=== PATIENT | female | born 1940 | race Caucasian/White ===

== ENCOUNTER 2019-09-28 09:32 | Emergency (ER) | payer MEDICARE, OTHER ==
[~2019-09-28] VITALS: Ht 162.6 cm; Wt 84.8 kg
[2019-09-28] MEDS ORDERED: LOSA100T50 (09:51)
[2019-09-28] MEDS ORDERED: ACET1TAB55 (09:51)
[2019-09-28] MEDS ORDERED: ASPI1CHW2 (09:51)
[2019-09-28] MEDS ORDERED: VITA-122 (09:51)
[2019-09-28] MEDS ORDERED: GLIP10TA18 (09:51)
[2019-09-28] MEDS ORDERED: FURO20TA2 (09:51)
[2019-09-28] MEDS ORDERED: BIMA01SOL (09:51)
[2019-09-28] MEDS ORDERED: COMB0.2S (09:51)
[2019-09-28] MEDS ORDERED: METF10004 (09:51)
[2019-09-28] MEDS ORDERED: ZOLP5TAB (09:51)
[2019-09-28] MEDS ORDERED: ATEN25TA (09:51)
[2019-09-28] MEDS ORDERED: BENA40TA5 (09:51)
[2019-09-28] MEDS ORDERED: AMLO10TA5 (09:51)
[2019-09-28 11:22] VITALS: BP 142/68
== END 2019-09-28 11:41 | disposition home or self-care (01) ==
LOC: M ED 09:32
DX: T58.11XA Toxic effect of carbon monoxide from utility gas, accidental (unintentional), initial encounter (principal); I10 Essential (primary) hypertension; E78.5 Hyperlipidemia, unspecified; E11.9 Type 2 diabetes mellitus without complications; H40.9 Unspecified glaucoma; Z79.82 Long term (current) use of aspirin; Z79.84 Long term (current) use of oral hypoglycemic drugs; Z79.899 Other long term (current) drug therapy; Z88.0 Allergy status to penicillin; Z88.2 Allergy status to sulfonamides; Z88.5 Allergy status to narcotic agent

== ENCOUNTER → 2022-08-31 | Outpatient (REF) | payer MEDICARE, OTHER ==
[~2022-08-31] MED LIST: ACET1TAB55; AMLO1TAB25; ASPI1CHW2; ATEN25TA; BENA40TA84; BIMA01SOL; COMB0.2S; FURO20TA2; GLIP10TA18; LOSA100T45; METF10004; VITA-168; ZOLP5TAB
[2022-08-31 20:11] LABS: TOTAL PROTEIN,RANDOM URINE 61.2 MG/DL (0.0-14.0)
[2022-09-01 09:53] LABS: CREATININE,RANDOM URINE 24.7 MG/DL
== END ==
LOC: M LAB REF 17:10
PROVIDERS: ATTEND Nurse Practitioner Family
DX: R80.0 Isolated proteinuria (principal)

== ENCOUNTER → 2022-09-30 | Outpatient (CLI) | payer MEDICARE, OTHER ==
[2022-09-30 10:01] LABS: HEMATOCRIT 41.3 % (36.0-47.0); HEMOGLOBIN 13.8 g/dl (12.0-15.5); MEAN CORPUSCULAR HEMOGLOBIN 29.9 pg (27.0-33.0); MEAN CORPUSCULAR HGB CONC 33.4 g/dl (32.0-36.5); MEAN CORPUSCULAR VOLUME 89.6 fl (80.0-96.0); PLATELET COUNT, AUTOMATED 266 10^3/uL (150-450); RED BLOOD COUNT 4.61 10^6/uL (4.00-5.40); WHITE BLOOD COUNT 8.2 10^3/uL (4.0-10.0)
[2022-09-30 10:13] LABS: INR 0.85; PROTHROMBIN TIME 11.8 SECONDS (12.5-14.5)
[2022-09-30 10:14] LABS: HEMOGLOBIN A1c 6.7 % (4.0-6.0)
[2022-09-30 10:36] LABS: ALBUMIN 3.8 G/DL (3.2-5.2); ALKALINE PHOSPHATASE 53 U/L (46-116); ALT/SGPT 15 U/L (7.0-40); AST/SGOT 18 U/L (<34); BILIRUBIN,TOTAL 0.6 MG/DL (0.3-1.2); BLOOD UREA NITROGEN 16 MG/DL (9-23); CALCIUM LEVEL 9.7 MG/DL (8.3-10.6); CARBON DIOXIDE LEVEL 30 MMOL/L (20-31); CHLORIDE LEVEL 94 MMOL/L (98-107); CHOLESTEROL LEVEL 260 MG/DL (<200); CHOLESTEROL RISK RATIO 5.73 (<5); CREATININE FOR GFR 0.54 MG/DL (0.55-1.30); GLOMERULAR FILTRATION RATE > 60.0 (>32); GLUCOSE, FASTING 181 MG/DL (74-106); HDL CHOLESTEROL 45.3 MG/DL (>40); NON-HDL-C 215 MG/DL; POTASSIUM SERUM 4.3 MMOL/L (3.5-5.1); SODIUM LEVEL 132 MMOL/L (136-145); THYROID STIMULATING HORMONE 3.107 uIU/ML (0.55-4.78); TOTAL 25(OH) VITAMIN D 44.9 NG/ML (20.0-100.0); TOTAL PROTEIN 7.1 G/DL (5.7-8.2); TRIGLYCERIDES LEVEL 464 MG/DL (<150)
== END ==
LOC: M RAD 07:50
PROVIDERS: ATTEND Family Medicine
DX: Z01.818 Encounter for other preprocedural examination (principal); I10 Essential (primary) hypertension; E11.9 Type 2 diabetes mellitus without complications; R53.83 Other fatigue; R91.8 Other nonspecific abnormal finding of lung field; R94.31 Abnormal electrocardiogram [ECG] [EKG]

== ENCOUNTER → 2023-02-17 | Outpatient (REF) | payer MEDICARE, OTHER ==
[~2023-02-17] MED LIST changes: -LOSA100T45; +LOSA100T46
[2023-02-18 10:16] LABS: TOTAL PROTEIN,RANDOM URINE 62.8 MG/DL (0.0-14.0)
[2023-02-18 10:21] LABS: CREATININE,RANDOM URINE 39.6 MG/DL
== END ==
LOC: M LAB REF 09:55
PROVIDERS: ATTEND Nurse Practitioner Family
DX: R80.0 Isolated proteinuria (principal)

== ENCOUNTER 2023-03-26 11:47 | Emergency (ER) | payer MEDICARE, OTHER ==
[~2023-03-26] VITALS: Ht 160 cm; Wt 83.2 kg
[~2023-03-26 11:47] MED LIST changes: -AMLO1TAB25; +AMLO1TAB25 PO; -ASPI1CHW2; +ASPI1CHW2 PO; -ATEN25TA; +ATEN25TA PO; -FURO20TA2; +FURO20TA2 PO; -LOSA100T46; +LOSA100T46 PO; -METF10004; +METF10004 PO
[2023-03-26 14:10] LABS: BASO # 0.2 10^3/uL (0.0-0.2); BASO % 1.5 % (0.0-1.0); EOS # 0.6 10^3/uL (0.0-0.5); EOS % 5.3 % (0.0-3.0); HEMOGLOBIN 12.6 g/dl (12.0-15.5); LYMPH # 1.9 10^3/uL (1.5-5.0); LYMPH % 17.3 % (24.0-44.0); MEAN CORPUSCULAR HEMOGLOBIN 29.9 pg (27.0-33.0); MEAN CORPUSCULAR HGB CONC 33.2 g/dl (32.0-36.5); MONO # 1.1 10^3/uL (0.0-0.8); MONO % 10.2 % (2.0-8.0); NEUTROPHILS # 7.2 10^3/uL (1.5-8.5); PLATELET COUNT, AUTOMATED 355 10^3/uL (150-450); RED BLOOD COUNT 4.22 10^6/uL (4.00-5.40); WHITE BLOOD COUNT 11.2 10^3/uL (4.0-10.0)
[2023-03-26] MEDS ORDERED: glipiZIDE XL 5 MG TABCR PO ONE (14:15)
[2023-03-26 14:24] LABS: HEMOGLOBIN A1c 7.3 % (4.0-6.0)
[2023-03-26 14:33] LABS: CK-MB VALUE MASS < 1.0 NG/ML (<3.6)
[2023-03-26 14:36] LABS: ALBUMIN 3.4 G/DL (3.2-5.2); ALKALINE PHOSPHATASE 180 U/L (46-116); ALT/SGPT 60 U/L (7.0-40); AST/SGOT 35 U/L (<34); BILIRUBIN,DIRECT 0.2 MG/DL (<0.4); BILIRUBIN,TOTAL 0.4 MG/DL (0.3-1.2); BLOOD UREA NITROGEN 13 MG/DL (9-23); CALCIUM LEVEL 9.2 MG/DL (8.3-10.6); CARBON DIOXIDE LEVEL 26 MMOL/L (20-31); CHLORIDE LEVEL 96 MMOL/L (98-107); CREATININE FOR GFR 0.49 MG/DL (0.55-1.30); GLOMERULAR FILTRATION RATE > 60.0 (>32); GLUCOSE, FASTING 180 MG/DL (74-106); POTASSIUM SERUM 4.7 MMOL/L (3.5-5.1); SODIUM LEVEL 133 MMOL/L (136-145); TOTAL PROTEIN 7.3 G/DL (5.7-8.2)
[2023-03-26 14:38] LABS: FREE T4 1.52 NG/DL (0.89-1.76); THYROID STIMULATING HORMONE 2.519 uIU/ML (0.55-4.78)
[2023-03-26 14:41] LABS: CPK CREATINE PHOSPHOKINASE 36 U/L (34-145); MB/CK RELATIVE INDEX 2.77 (< OR =4)
[2023-03-26 15:58] LABS: CK-MB VALUE MASS < 1.0 NG/ML (<3.6)
[2023-03-26 16:01] LABS: CPK CREATINE PHOSPHOKINASE 29 U/L (34-145); MB/CK RELATIVE INDEX 3.44 (< OR =4)
[2023-03-26] MEDS ORDERED: AMBI5TAB PO (16:14)
[2023-03-26] MEDS ORDERED: LOSARTAN 50MG TABLET PO ONE (16:20)
[2023-03-26 16:30] VITALS: BP 148/69; TEMP 97.7; O2SAT 91
[2023-03-26 16:40] VITALS: BP 148/69
== END 2023-03-26 16:45 | disposition home or self-care (01) ==
LOC: M ED 11:47
DX: E11.65 Type 2 diabetes mellitus with hyperglycemia (principal); I12.9 Hypertensive chronic kidney disease with stage 1 through stage 4 chronic kidney disease, or unspecified chronic kidney disease; N18.9 Chronic kidney disease, unspecified; E78.5 Hyperlipidemia, unspecified; Z88.0 Allergy status to penicillin; Z88.2 Allergy status to sulfonamides; Z88.5 Allergy status to narcotic agent; Z79.899 Other long term (current) drug therapy; Z79.82 Long term (current) use of aspirin; Z79.84 Long term (current) use of oral hypoglycemic drugs

== ENCOUNTER → 2024-01-18 | Outpatient (CLI) | payer MEDICARE, OTHER ==
[~2024-01-18] MED LIST changes: +AMBI5TAB PO
[2024-01-18 11:14] LABS: HEMATOCRIT 38.6 % (36.0-47.0); HEMOGLOBIN 12.8 g/dl (12.0-15.5); MEAN CORPUSCULAR HEMOGLOBIN 29.3 pg (27.0-33.0); MEAN CORPUSCULAR HGB CONC 33.2 g/dl (32.0-36.5); MEAN CORPUSCULAR VOLUME 88.3 fl (80.0-96.0); PLATELET COUNT, AUTOMATED 267 10^3/uL (150-450); RED BLOOD COUNT 4.37 10^6/uL (4.00-5.40); WHITE BLOOD COUNT 7.5 10^3/uL (4.0-10.0)
[2024-01-18 11:28] LABS: HEMOGLOBIN A1c 6.8 % (4.0-6.0)
[2024-01-18 11:41] LABS: ALBUMIN 3.3 G/DL (3.2-5.2); ALKALINE PHOSPHATASE 54 U/L (46-116); ALT/SGPT 13 U/L (7.0-40); AST/SGOT 12 U/L (<34); BILIRUBIN,TOTAL 0.5 MG/DL (0.3-1.2); BLOOD UREA NITROGEN 16 MG/DL (9-23); CARBON DIOXIDE LEVEL 28 MMOL/L (20-31); CHLORIDE LEVEL 100 MMOL/L (98-107); CHOLESTEROL LEVEL 217 MG/DL (<200); CHOLESTEROL RISK RATIO 5.56 (<5); CREATININE FOR GFR 0.61 MG/DL (0.55-1.30); GLOMERULAR FILTRATION RATE > 60.0 (>32); GLUCOSE, FASTING 157 MG/DL (74-106); POTASSIUM SERUM 4.5 MMOL/L (3.5-5.1); SODIUM LEVEL 136 MMOL/L (136-145); THYROID STIMULATING HORMONE 4.046 uIU/ML (0.55-4.78); TOTAL 25(OH) VITAMIN D 21.5 NG/ML (20.0-100.0); TOTAL PROTEIN 6.7 G/DL (5.7-8.2); TRIGLYCERIDES LEVEL 432 MG/DL (<150)
== END ==
LOC: M LAB 09:21
PROVIDERS: ATTEND Family Medicine
DX: I10 Essential (primary) hypertension (principal); R53.83 Other fatigue; E03.9 Hypothyroidism, unspecified; Z79.899 Other long term (current) drug therapy

== ENCOUNTER → 2024-05-03 | Outpatient (CLI) | payer MEDICARE, OTHER ==
[2024-05-03 12:03] LABS: HEMATOCRIT 40.4 % (36.0-47.0); HEMOGLOBIN 13.5 g/dl (12.0-15.5); MEAN CORPUSCULAR HEMOGLOBIN 29.2 pg (27.0-33.0); MEAN CORPUSCULAR HGB CONC 33.4 g/dl (32.0-36.5); MEAN CORPUSCULAR VOLUME 87.4 fl (80.0-96.0); PLATELET COUNT, AUTOMATED 331 10^3/uL (150-450); RED BLOOD COUNT 4.62 10^6/uL (4.00-5.40); WHITE BLOOD COUNT 9.8 10^3/uL (4.0-10.0)
[2024-05-03 12:26] LABS: HEMOGLOBIN A1c 6.6 % (4.0-6.0)
[2024-05-03 12:30] LABS: THYROID STIMULATING HORMONE 3.707 uIU/ML (0.55-4.78); TOTAL 25(OH) VITAMIN D 28.5 NG/ML (20.0-100.0)
[2024-05-03 12:31] LABS: ALBUMIN 3.5 G/DL (3.2-5.2); ALKALINE PHOSPHATASE 68 U/L (46-116); ALT/SGPT 14 U/L (7.0-40); AST/SGOT 13 U/L (<34); BILIRUBIN,TOTAL 0.4 MG/DL (0.3-1.2); BLOOD UREA NITROGEN 15 MG/DL (9-23); CALCIUM LEVEL 10.4 MG/DL (8.3-10.6); CARBON DIOXIDE LEVEL 32 MMOL/L (20-31); CHLORIDE LEVEL 98 MMOL/L (98-107); CHOLESTEROL LEVEL 236 MG/DL (<200); CHOLESTEROL RISK RATIO 6.11 (<5); GLOMERULAR FILTRATION RATE > 60.0 (>32); GLUCOSE, FASTING 160 MG/DL (74-106); HDL CHOLESTEROL 38.6 MG/DL (>40); NON-HDL-C 197.4 MG/DL; POTASSIUM SERUM 4.7 MMOL/L (3.5-5.1); SODIUM LEVEL 134 MMOL/L (136-145); TOTAL PROTEIN 7.2 G/DL (5.7-8.2); TRIGLYCERIDES LEVEL 402 MG/DL (<150)
== END ==
LOC: M RAD 10:20
PROVIDERS: ATTEND Family Medicine
DX: I10 Essential (primary) hypertension (principal); E11.9 Type 2 diabetes mellitus without complications; M25.512 Pain in left shoulder; M25.532 Pain in left wrist; M19.042 Primary osteoarthritis, left hand; Z79.899 Other long term (current) drug therapy

== ENCOUNTER → 2024-08-13 | Outpatient (CLI) | payer MEDICARE, OTHER ==
[2024-08-13 12:08] LABS: HEMATOCRIT 41.7 % (36.0-47.0); HEMOGLOBIN 14.1 g/dl (12.0-15.5); MEAN CORPUSCULAR HEMOGLOBIN 29.8 pg (27.0-33.0); MEAN CORPUSCULAR HGB CONC 33.8 g/dl (32.0-36.5); MEAN CORPUSCULAR VOLUME 88.2 fl (80.0-96.0); PLATELET COUNT, AUTOMATED 303 10^3/uL (150-450); RED BLOOD COUNT 4.73 10^6/uL (4.00-5.40); WHITE BLOOD COUNT 9.6 10^3/uL (4.0-10.0)
[2024-08-13 12:14] LABS: HEMOGLOBIN A1c 6.7 % (4.0-6.0)
[2024-08-13 12:23] LABS: ALBUMIN 3.7 G/DL (3.2-5.2); ALKALINE PHOSPHATASE 60 U/L (35-104); ALT/SGPT 16 U/L (7.0-40); AST/SGOT 13 U/L (<34); BILIRUBIN,TOTAL 0.4 MG/DL (0.3-1.2); BLOOD UREA NITROGEN 15 MG/DL (9-23); CALCIUM LEVEL 10.1 MG/DL (8.3-10.6); CARBON DIOXIDE LEVEL 31 MMOL/L (20-31); CHLORIDE LEVEL 96 MMOL/L (98-107); CHOLESTEROL LEVEL 277 MG/DL (<200); CHOLESTEROL RISK RATIO 6.39 (<5); CREATININE FOR GFR 0.52 MG/DL (0.55-1.30); GLOMERULAR FILTRATION RATE > 60.0 (>32); GLUCOSE, FASTING 176 MG/DL (74-106); HDL CHOLESTEROL 43.3 MG/DL (>40); NON-HDL-C 233.7 MG/DL; POTASSIUM SERUM 4.4 MMOL/L (3.5-5.1); SODIUM LEVEL 133 MMOL/L (136-145); TOTAL PROTEIN 7.8 G/DL (5.7-8.2); TRIGLYCERIDES LEVEL 671 MG/DL (<150)
[2024-08-13 12:25] LABS: THYROID STIMULATING HORMONE 2.562 uIU/ML (0.55-4.78); TOTAL 25(OH) VITAMIN D 27.2 NG/ML (20.0-100.0)
== END ==
LOC: M RAD 10:38
PROVIDERS: ATTEND Family Medicine
DX: I10 Essential (primary) hypertension (principal); R53.83 Other fatigue

== ENCOUNTER 2024-09-27 07:28 | Inpatient (IN) | payer MEDICARE, OTHER ==
[~2024-09-27] VITALS: Ht 160 cm; Wt 84.4 kg
[~2024-09-27 07:28] MED LIST changes: -ACET1TAB55; +ACET1TAB55 PO; -BIMA01SOL; +BIMA01SOL OU; -COMB0.2S; +COMB0.2S OU; -GLIP10TA18; +GLIP10TA18 PO
[2024-09-27 08:09] LABS: BASO # 0.1 10^3/uL (0.0-0.2); EOS # 0.2 10^3/uL (0.0-0.5); EOS % 1.5 % (0.0-3.0); HEMOGLOBIN 12.9 g/dl (12.0-15.5); LYMPH # 1.3 10^3/uL (1.5-5.0); LYMPH % 12.5 % (24.0-44.0); MEAN CORPUSCULAR HEMOGLOBIN 29.9 pg (27.0-33.0); MEAN CORPUSCULAR HGB CONC 33.9 g/dl (32.0-36.5); MONO # 0.6 10^3/uL (0.0-0.8); MONO % 6.2 % (2.0-8.0); NEUTROPHILS # 7.5 10^3/uL (1.5-8.5); NEUTROPHILS % 73.8 % (36.0-66.0); PLATELET COUNT, AUTOMATED 358 10^3/uL (150-450); RED BLOOD COUNT 4.32 10^6/uL (4.00-5.40); WHITE BLOOD COUNT 10.2 10^3/uL (4.0-10.0)
[2024-09-27 08:52] LABS: ALBUMIN 3.1 G/DL (3.2-5.2); ALKALINE PHOSPHATASE 70 U/L (35-104); ALT/SGPT 21 U/L (7.0-40); AST/SGOT 22 U/L (<34); BILIRUBIN,DIRECT 0.2 MG/DL (<0.4); BILIRUBIN,TOTAL 0.5 MG/DL (0.3-1.2); BLOOD UREA NITROGEN 10 MG/DL (9-23); CALCIUM LEVEL 8.6 MG/DL (8.3-10.6); CARBON DIOXIDE LEVEL 32 MMOL/L (20-31); CHLORIDE LEVEL 81 MMOL/L (98-107); CREATININE FOR GFR 0.47 MG/DL (0.55-1.30); GLOMERULAR FILTRATION RATE > 60.0 (>32); GLUCOSE, FASTING 244 MG/DL (74-106); POTASSIUM SERUM 4.6 MMOL/L (3.5-5.1); SODIUM LEVEL 122 MMOL/L (136-145); TOTAL PROTEIN 6.7 G/DL (5.7-8.2)
[2024-09-27] MEDS: IPRATROPIUM 0.5MG/ALBUTEROL 2.5MG INH SOL UD 3ML (DUONEB) NEB SCH (08:52)
[2024-09-27] MEDS: CEFEPIME HCL 2 GM in DEXTROSE 5% (D5W) ADV/MINI-BAG 50 ML IV ONE (09:00)
[2024-09-27 09:01] LABS: ABG BASE EXCESS 4.9 (-2.0-2.0); ABG O2 SATURATION 90.5 % (95.0-99.0); ABG PARTIAL PRESSURE CO2 52.1 mmHg (35.0-45.0); ABG PARTIAL PRESSURE O2 60.9 mmHg (75.0-100.0); ABG STANDARD HCO3 28.7 MMOL/L. (22.0-26.0); ABG TOTAL CO2 32.6 MMOL/L (23.0-31.0); ABG pH (ARTERIAL) 7.393 UNITS (7.350-7.450)
[2024-09-27] MEDS: OSELTAMIVIR PHOSPHATE 75 MG CAP PO ONE (09:40)
[2024-09-27 11:12] LABS: FREE T4 1.63 NG/DL (0.89-1.76)
[2024-09-27 11:13] LABS: THYROID STIMULATING HORMONE 2.219 uIU/ML (0.55-4.78)
[2024-09-27 11:29] LABS: OSMOLALITY SERUM 267 MOSM/KG (280-301)
[2024-09-27] MEDS ORDERED: GLUCOSE 4 GM CHEW PO PRN (11:30)
[2024-09-27] MEDS ORDERED: DEXTROSE 50% 50ML SYRINGE IV PRN (11:30)
[2024-09-27] MEDS ORDERED: GLUCAGON INJ 1MG VIAL SC PRN (11:30)
[2024-09-27 11:44] LABS: CREATININE,RANDOM URINE 49.3 MG/DL
[2024-09-27] MEDS: DOXYCYCLINE HYCLATE 100 MG in DEXTROSE 5% (D5W) MINI-BAG PLU 100 ML IV SCH (12:57)
[2024-09-27] MEDS ORDERED: VITA1CAP25 PO (13:24)
[2024-09-27] MEDS ORDERED: CIPR250T3 PO (13:24)
[2024-09-27] MEDS ORDERED: ASPI325T47 PO (13:24)
[2024-09-27] MEDS ORDERED: HOME MED LIST COMPLETE! XX SCH (13:25)
[2024-09-27] MEDS: INSULIN LISPRO (NovoLOG) PER UNIT SC SCH ×2 (13:26→22:13)
[2024-09-27] MEDS: ALBUTEROL SULFATE 2.5MG/0.5ML INH NEB SOLN NEB SCH ×2 (13:40→16:00)
[2024-09-27] MEDS: FUROSEMIDE 20MG/2ML VIAL IV ONE (15:37)
[2024-09-27] MEDS: cefTRIAXone SOD 2 GM in DEXTROSE 5% (D5W) ADV/MINI-BAG 50 ML IV SCH (17:58)
[2024-09-27 18:55] LABS: BLOOD UREA NITROGEN 16 MG/DL (9-23); CALCIUM LEVEL 8.2 MG/DL (8.3-10.6); CARBON DIOXIDE LEVEL 30 MMOL/L (20-31); CHLORIDE LEVEL 83 MMOL/L (98-107); CREATININE FOR GFR 0.53 MG/DL (0.55-1.30); GLOMERULAR FILTRATION RATE > 60.0 (>32); GLUCOSE, FASTING 262 MG/DL (74-106); POTASSIUM SERUM 5.3 MMOL/L (3.5-5.1); SODIUM LEVEL 122 MMOL/L (136-145)
[2024-09-27] MEDS: SYMBICORT 160/4.5MCG INHALER 6GM INH SCH (19:11)
[2024-09-27] MEDS: DOCUSATE SODIUM 100MG CAPSULE PO SCH (21:00)
[2024-09-27 21:46] VITALS: BP 125/65; TEMP 98.2; O2SAT 94
[2024-09-27] MEDS: ENOXAPARIN 40MG/0.4ML SYRINGE (J1650 PER 10MG) SC SCH (22:11)
[2024-09-27] MEDS: LEVEMIR (INSULIN DETEMIR) 1 UNITS/0.01ML SC SCH (22:12)
[2024-09-27] MEDS: OSELTAMIVIR PHOSPHATE 75 MG CAP PO SCH (22:13)
[2024-09-28] VITALS (10 sets, daily range): BP systolic 110–140; BP diastolic 54–70; TEMP 97.1–98.6; O2SAT 90–95
[2024-09-28] MEDS: LATANOPROST 0.005% OPHTH SOLN 2.5 ML OU SCH (00:34)
[2024-09-28 05:44] LABS: BASO % 0.4 % (0.0-1.0); EOS % 0.1 % (0.0-3.0); HEMATOCRIT 35.8 % (36.0-47.0); HEMOGLOBIN 12.1 g/dl (12.0-15.5); LYMPH # 0.9 10^3/uL (1.5-5.0); LYMPH % 9.3 % (24.0-44.0); MEAN CORPUSCULAR HEMOGLOBIN 29.7 pg (27.0-33.0); MEAN CORPUSCULAR HGB CONC 33.8 g/dl (32.0-36.5); MONO # 0.4 10^3/uL (0.0-0.8); NEUTROPHILS # 8.2 10^3/uL (1.5-8.5); NEUTROPHILS % 83.2 % (36.0-66.0); PLATELET COUNT, AUTOMATED 344 10^3/uL (150-450); RED BLOOD COUNT 4.07 10^6/uL (4.00-5.40); WHITE BLOOD COUNT 9.9 10^3/uL (4.0-10.0)
[2024-09-28 06:01] LABS: BLOOD UREA NITROGEN 17 MG/DL (9-23); CALCIUM LEVEL 8.9 MG/DL (8.3-10.6); CARBON DIOXIDE LEVEL 34 MMOL/L (20-31); CHLORIDE LEVEL 86 MMOL/L (98-107); GLOMERULAR FILTRATION RATE > 60.0 (>32); GLUCOSE, FASTING 118 MG/DL (74-106); SODIUM LEVEL 128 MMOL/L (136-145)
[2024-09-28] MEDS: ASPIRIN ENTERIC 325MG TAB PO SCH (08:57)
[2024-09-28] MEDS: atenoloL 25 MG TAB PO SCH (08:58)
[2024-09-28] MEDS: glipiZIDE XL 5 MG TABCR PO SCH (08:58)
[2024-09-28] MEDS: FUROSEMIDE 20 MG TAB PO SCH (08:58)
[2024-09-28] MEDS ORDERED: PILL CUTTER 1 EACH XX ONE (09:03)
[2024-09-28] MEDS: DOXYCYCLINE HYCLATE 100MG TABLET PO SCH (20:36)
[2024-09-29 00:18] VITALS: O2SAT 91
[2024-09-29 04:57] VITALS: BP 138/69; TEMP 97.3; O2SAT 94
[2024-09-29 08:35] LABS: BASO % 0.3 % (0.0-1.0); EOS % 0.1 % (0.0-3.0); HEMOGLOBIN 12.6 g/dl (12.0-15.5); LYMPH # 0.8 10^3/uL (1.5-5.0); LYMPH % 7.1 % (24.0-44.0); MEAN CORPUSCULAR HEMOGLOBIN 29.5 pg (27.0-33.0); MEAN CORPUSCULAR HGB CONC 33.2 g/dl (32.0-36.5); MONO # 0.4 10^3/uL (0.0-0.8); MONO % 3.8 % (2.0-8.0); NEUTROPHILS # 10.1 10^3/uL (1.5-8.5); PLATELET COUNT, AUTOMATED 407 10^3/uL (150-450); RED BLOOD COUNT 4.27 10^6/uL (4.00-5.40); WHITE BLOOD COUNT 11.7 10^3/uL (4.0-10.0)
[2024-09-29 08:54] LABS: BLOOD UREA NITROGEN 21 MG/DL (9-23); CALCIUM LEVEL 9.2 MG/DL (8.3-10.6); CARBON DIOXIDE LEVEL 36 MMOL/L (20-31); CHLORIDE LEVEL 87 MMOL/L (98-107); CREATININE FOR GFR 0.57 MG/DL (0.55-1.30); GLOMERULAR FILTRATION RATE > 60.0 (>32); GLUCOSE, FASTING 176 MG/DL (74-106); POTASSIUM SERUM 5.2 MMOL/L (3.5-5.1); SODIUM LEVEL 130 MMOL/L (136-145)
[2024-09-29 12:00] VITALS: TEMP 97.7; O2SAT 94
[2024-09-29 18:50] VITALS: O2SAT 93
[2024-09-29 19:38] VITALS: BP 126/49; TEMP 97.5; O2SAT 94
[2024-09-29 20:34] VITALS: O2SAT 90
[2024-09-30 04:00] VITALS: BP 153/77; TEMP 97.3; O2SAT 97
[2024-09-30 06:11] LABS: BASO % 0.1 % (0.0-1.0); EOS % 0.4 % (0.0-3.0); HEMATOCRIT 36.7 % (36.0-47.0); HEMOGLOBIN 11.7 g/dl (12.0-15.5); LYMPH # 0.5 10^3/uL (1.5-5.0); LYMPH % 4.6 % (24.0-44.0); MEAN CORPUSCULAR HGB CONC 31.9 g/dl (32.0-36.5); MEAN CORPUSCULAR VOLUME 91.1 fl (80.0-96.0); MONO # 0.4 10^3/uL (0.0-0.8); MONO % 4.2 % (2.0-8.0); NEUTROPHILS # 8.7 10^3/uL (1.5-8.5); NEUTROPHILS % 89.8 % (36.0-66.0); PLATELET COUNT, AUTOMATED 346 10^3/uL (150-450); RED BLOOD COUNT 4.03 10^6/uL (4.00-5.40); WHITE BLOOD COUNT 9.7 10^3/uL (4.0-10.0)
[2024-09-30 06:35] LABS: BLOOD UREA NITROGEN 24 MG/DL (9-23); CALCIUM LEVEL 8.6 MG/DL (8.3-10.6); CARBON DIOXIDE LEVEL 34 MMOL/L (20-31); CHLORIDE LEVEL 92 MMOL/L (98-107); CREATININE FOR GFR 0.63 MG/DL (0.55-1.30); GLOMERULAR FILTRATION RATE > 60.0 (>32); GLUCOSE, FASTING 187 MG/DL (74-106); POTASSIUM SERUM 4.7 MMOL/L (3.5-5.1); SODIUM LEVEL 131 MMOL/L (136-145)
[2024-09-30 08:37] VITALS: BP 136/68
[2024-09-30] MEDS: CEFDINIR 300 MG CAP (OMNICEF) PO SCH (10:07)
[2024-09-30 12:00] VITALS: BP 145/67; TEMP 97.3; O2SAT 89; O2SAT 90
[2024-09-30 20:10] VITALS: BP 110/50; TEMP 97.3; O2SAT 93
[2024-09-30] MEDS: RAMELTEON 8 MG TAB (ROZEREM) PO SCH (20:29)
[2024-10-01] VITALS (11 sets, daily range): BP systolic 106–139; BP diastolic 55–62; TEMP 97.3–97.5; O2SAT 83–94
[2024-10-01 07:38] LABS: BASO % 0.1 % (0.0-1.0); EOS # 0.1 10^3/uL (0.0-0.5); EOS % 0.4 % (0.0-3.0); HEMATOCRIT 37.2 % (36.0-47.0); HEMOGLOBIN 12.2 g/dl (12.0-15.5); LYMPH # 2.9 10^3/uL (1.5-5.0); LYMPH % 21.4 % (24.0-44.0); MEAN CORPUSCULAR HEMOGLOBIN 29.8 pg (27.0-33.0); MEAN CORPUSCULAR HGB CONC 32.8 g/dl (32.0-36.5); MONO # 1.4 10^3/uL (0.0-0.8); MONO % 10.1 % (2.0-8.0); NEUTROPHILS # 9.2 10^3/uL (1.5-8.5); NEUTROPHILS % 67.3 % (36.0-66.0); PLATELET COUNT, AUTOMATED 421 10^3/uL (150-450); RED BLOOD COUNT 4.09 10^6/uL (4.00-5.40); WHITE BLOOD COUNT 13.6 10^3/uL (4.0-10.0)
[2024-10-01 08:05] LABS: BLOOD UREA NITROGEN 21 MG/DL (9-23); CALCIUM LEVEL 9.6 MG/DL (8.3-10.6); CARBON DIOXIDE LEVEL 34 MMOL/L (20-31); CHLORIDE LEVEL 95 MMOL/L (98-107); GLOMERULAR FILTRATION RATE > 60.0 (>32); GLUCOSE, FASTING 52 MG/DL (74-106); POTASSIUM SERUM 4.7 MMOL/L (3.5-5.1); SODIUM LEVEL 135 MMOL/L (136-145)
[2024-10-01] MEDS: predniSONE 20 MG TAB PO SCH (10:17)
[2024-10-01] MEDS ORDERED: traZODone 25MG PER 1/2 TABLET PO PRN (12:10)
[2024-10-01] MEDS ORDERED: OSEL75CA2 PO (14:52)
[2024-10-01] MEDS ORDERED: DOXY100T PO (14:52)
[2024-10-01] MEDS ORDERED: PRED10TA2 PO (14:52)
[2024-10-01] MEDS ORDERED: VENTAER INH (14:52)
[2024-10-01] MEDS ORDERED: CEFD300CAP PO (14:52)
[2024-10-01] MEDS ORDERED: PROBCAP14 PO (14:52)
[2024-10-01] MEDS ORDERED: SYMB16INH INH (14:52)
== END 2024-10-01 16:18 | disposition home or self-care (01) | DRG 871 ==
LOC: M ED 07:28 → M ED INP 11:20 → M PCU 21:44 → M MSPAV 09-28 16:31
PROVIDERS: ADMIT Internal Medicine Nephrology; ATTEND Internal Medicine Nephrology
DX: A41.9 Sepsis, unspecified organism (principal); J10.00 Influenza due to other identified influenza virus with unspecified type of pneumonia; J15.9 Unspecified bacterial pneumonia; J96.01 Acute respiratory failure with hypoxia; J90 Pleural effusion, not elsewhere classified; E22.2 Syndrome of inappropriate secretion of antidiuretic hormone; E11.22 Type 2 diabetes mellitus with diabetic chronic kidney disease; I12.9 Hypertensive chronic kidney disease with stage 1 through stage 4 chronic kidney disease, or unspecified chronic kidney disease; E78.5 Hyperlipidemia, unspecified; N18.9 Chronic kidney disease, unspecified; R91.1 Solitary pulmonary nodule; Z98.41 Cataract extraction status, right eye; Z98.42 Cataract extraction status, left eye; Z79.82 Long term (current) use of aspirin; Z79.84 Long term (current) use of oral hypoglycemic drugs; Z79.899 Other long term (current) drug therapy; Z88.0 Allergy status to penicillin; Z88.1 Allergy status to other antibiotic agents; Z88.2 Allergy status to sulfonamides; Z88.5 Allergy status to narcotic agent

== ENCOUNTER → 2024-10-23 | Outpatient (CLI) | payer MEDICARE, OTHER ==
[~2024-10-23] MED LIST changes: +ASPI325T47 PO; +ASPI81TA26 PO; +CEFD300CAP PO; +CIPR250T3 PO; +DOXY100T PO; +GLIP-320 PO; -GLIP10TA18 PO; +HYDR1CAP25 PO; +OSEL75CA2 PO; +PRED10TA2 PO; +PROBCAP14 PO; +SYMB16INH INH; +VENTAER INH; +VITA1CAP25 PO
== END ==
LOC: M RAD 09:47
PROVIDERS: ATTEND Family Medicine
DX: R07.9 Chest pain, unspecified (principal)

== ENCOUNTER 2024-10-26 11:23 | Inpatient (IN) | payer MEDICARE, OTHER ==
[~2024-10-26] VITALS: Ht 162.6 cm; Wt 82.3 kg
[~2024-10-26 11:23] MED LIST changes: -ASPI81TA26 PO; -HYDR1CAP25 PO
[2024-10-26] MEDS: IPRATROPIUM 0.5MG/ALBUTEROL 2.5MG INH SOL UD 3ML NEB PRN (11:57)
[2024-10-26 12:18] LABS: ABG BASE EXCESS -6.2 (-2.0-2.0); ABG HCO3 19.4 MMOL/L (22.0-26.0); ABG O2 SATURATION 93.7 % (95.0-99.0); ABG PARTIAL PRESSURE CO2 38.6 mmHg (35.0-45.0); ABG PARTIAL PRESSURE O2 70.9 mmHg (75.0-100.0); ABG STANDARD HCO3 19.4 MMOL/L. (22.0-26.0); ABG TOTAL CO2 20.6 MMOL/L (23.0-31.0); ABG pH (ARTERIAL) 7.319 UNITS (7.350-7.450)
[2024-10-26 12:38] LABS: BASO # 0.1 10^3/uL (0.0-0.2); BASO % 0.3 % (0.0-1.0); EOS # 0.1 10^3/uL (0.0-0.5); EOS % 0.9 % (0.0-3.0); HEMATOCRIT 37.7 % (36.0-47.0); HEMOGLOBIN 12.5 g/dl (12.0-15.5); LYMPH # 0.8 10^3/uL (1.5-5.0); LYMPH % 5.4 % (24.0-44.0); MEAN CORPUSCULAR HEMOGLOBIN 28.5 pg (27.0-33.0); MEAN CORPUSCULAR HGB CONC 33.2 g/dl (32.0-36.5); MEAN CORPUSCULAR VOLUME 85.9 fl (80.0-96.0); MONO # 0.7 10^3/uL (0.0-0.8); MONO % 4.8 % (2.0-8.0); NEUTROPHILS % 87.1 % (36.0-66.0); PLATELET COUNT, AUTOMATED 574 10^3/uL (150-450); RED BLOOD COUNT 4.39 10^6/uL (4.00-5.40); WHITE BLOOD COUNT 14.9 10^3/uL (4.0-10.0)
[2024-10-26] MEDS: dexAMETHasone 20MG/5ML VIAL IV ONE (12:43)
[2024-10-26 13:25] LABS: ALBUMIN 2.8 G/DL (3.2-5.2); BILIRUBIN,DIRECT 0.2 MG/DL (<0.4); BILIRUBIN,TOTAL 0.5 MG/DL (0.3-1.2); CALCIUM LEVEL 7.8 MG/DL (8.3-10.6); CREATININE FOR GFR 3.99 MG/DL (0.55-1.30); GLOMERULAR FILTRATION RATE 11.4 (>32); POTASSIUM SERUM 6.7 MMOL/L (3.5-5.1); TOTAL PROTEIN 6.3 G/DL (5.7-8.2)
[2024-10-26 15:09] LABS: CALCIUM LEVEL 7.8 MG/DL (8.3-10.6); CREATININE FOR GFR 3.96 MG/DL (0.55-1.30); FREE T4 1.24 NG/DL (0.89-1.76); GLOMERULAR FILTRATION RATE 11.5 (>32); POTASSIUM SERUM 6.7 MMOL/L (3.5-5.1); THYROID STIMULATING HORMONE 5.055 uIU/ML (0.55-4.78)
[2024-10-26 15:10] LABS: CREATININE,RANDOM URINE 75.2 MG/DL
[2024-10-26] MEDS: DEXTROSE 50% 50ML SYRINGE IV STA ×2 (15:18→19:52)
[2024-10-26] MEDS: HumuLIN R (REGULAR) INSULIN (NovoLIN R) **100U/ML** PER UNIT IV STA ×2 (15:20→18:39)
[2024-10-26 15:25] LABS: SODIUM,RANDOM URINE < 10 MMOL/L
[2024-10-26] MEDS: CALCIUM CHLORIDE 10% 1 GM in D5W 100 ML IV ONE ×2 (15:27→19:55)
[2024-10-26] MEDS: FUROSEMIDE 40MG/4ML VIAL IV ONE (15:46)
[2024-10-26] MEDS ORDERED: ASPI81TA26 PO (16:28)
[2024-10-26] MEDS ORDERED: HYDR1CAP25 PO (16:28)
[2024-10-26] MEDS ORDERED: ATEN25TA PO (16:28)
[2024-10-26] MEDS ORDERED: HOME MED LIST COMPLETE! XX SCH (16:30)
[2024-10-26] MEDS ORDERED: ALBUTEROL 90 MCG/ACT 8GM HFA INHALER INH PRN (16:50)
[2024-10-26] MEDS ORDERED: GLUCOSE 4 GM CHEW PO PRN (17:00)
[2024-10-26] MEDS ORDERED: GLUCAGON INJ 1MG VIAL SC PRN (17:00)
[2024-10-26] MEDS ORDERED: DEXTROSE 50% 50ML SYRINGE IV PRN (17:00)
[2024-10-26] MEDS: NS (Normal Saline) 0.9% 1,000 ML IV ONE (17:15)
[2024-10-26] MEDS: INSULIN LISPRO (NovoLOG) PER UNIT SC SCH ×2 (17:30→21:00)
[2024-10-26 17:44] VITALS: BP 140/65; TEMP 96.8; O2SAT 93
[2024-10-26 18:21] LABS: CALCIUM LEVEL 8.7 MG/DL (8.3-10.6); CREATININE FOR GFR 4.29 MG/DL (0.55-1.30); GLOMERULAR FILTRATION RATE 10.5 (>32); POTASSIUM SERUM 6.5 MMOL/L (3.5-5.1)
[2024-10-26 19:04] LABS: KETONE, URINE AUTO RFX NEGATIVE (NEGATIVE); LEUKOCYTE ESTERASE UR AUTO RFX NEGATIVE (NEGATIVE); NITRITE, URINE AUTO RFX NEGATIVE (NEGATIVE); RBC, URINE AUTO RFX 0 /HPF (0-3); SQUAM EPITHELIAL CELL UR AURFX 0 /HPF (0-6); WBC, URINE AUTO RFX 2 /HPF (0-3)
[2024-10-26] MEDS: ALBUTEROL SULFATE 2.5MG/0.5ML INH CONCENTRATE NEB SOLN NEB ONE (19:04)
[2024-10-26] MEDS: SYMBICORT 160/4.5MCG INHALER 6GM INH SCH (19:04)
[2024-10-26 19:34] VITALS: BP 114/56; TEMP 96; O2SAT 98
[2024-10-26] MEDS: SOD POLYSTYRENE SULFONATE SUSP 15GM 60ML UD PO ONE (19:52)
[2024-10-26 22:11] LABS: CALCIUM LEVEL 9.2 MG/DL (8.3-10.6); CREATININE FOR GFR 4.32 MG/DL (0.55-1.30); GLOMERULAR FILTRATION RATE 10.4 (>32); POTASSIUM SERUM 6.3 MMOL/L (3.5-5.1)
[2024-10-26] MEDS: NS (Normal Saline) 0.9% 1,000 ML IV SCH (23:14)
[2024-10-26] MEDS: ONDANSETRON 4MG 2ML VIAL IV PRN (23:39)
[2024-10-26 23:47] VITALS: BP 113/53; TEMP 96.1; O2SAT 88
[2024-10-27] VITALS (13 sets, daily range): BP systolic 94–142; BP diastolic 49–58; TEMP 96.5–97.9; O2SAT 85–100
[2024-10-27] MEDS: METOCLOPRAMIDE INJ 10MG/2ML VIAL IV ONE (00:50)
[2024-10-27 03:12] LABS: CALCIUM LEVEL 8.8 MG/DL (8.3-10.6); CREATININE FOR GFR 4.47 MG/DL (0.55-1.30)
[2024-10-27] MEDS: HumuLIN R (REGULAR) INSULIN (NovoLIN R) **100U/ML** PER UNIT IV STA (03:26)
[2024-10-27] MEDS: DEXTROSE 50% 50ML SYRINGE IV STA (03:26)
[2024-10-27] MEDS: CALCIUM CHLORIDE 10% 1 GM in D5W 100 ML IV ONE (03:27)
[2024-10-27] MEDS: ALBUTEROL SULFATE 2.5MG/0.5ML INH CONCENTRATE NEB SOLN NEB ONE (03:32)
[2024-10-27 06:15] LABS: CALCIUM LEVEL 9.5 MG/DL (8.3-10.6); CREATININE FOR GFR 4.63 MG/DL (0.55-1.30); GLOMERULAR FILTRATION RATE 9.6 (>32); POTASSIUM SERUM 6.3 MMOL/L (3.5-5.1)
[2024-10-27 09:58] LABS: BASO % 0.2 % (0.0-1.0); HEMATOCRIT 36.3 % (36.0-47.0); HEMOGLOBIN 11.8 g/dl (12.0-15.5); LYMPH # 0.6 10^3/uL (1.5-5.0); LYMPH % 3.4 % (24.0-44.0); MEAN CORPUSCULAR HEMOGLOBIN 28.8 pg (27.0-33.0); MEAN CORPUSCULAR HGB CONC 32.5 g/dl (32.0-36.5); MEAN CORPUSCULAR VOLUME 88.5 fl (80.0-96.0); MONO # 0.5 10^3/uL (0.0-0.8); MONO % 2.9 % (2.0-8.0); NEUTROPHILS # 16.4 10^3/uL (1.5-8.5); NEUTROPHILS % 92.3 % (36.0-66.0); PLATELET COUNT, AUTOMATED 547 10^3/uL (150-450); WHITE BLOOD COUNT 17.8 10^3/uL (4.0-10.0)
[2024-10-27 10:21] LABS: ALBUMIN 2.8 G/DL (3.2-5.2); BILIRUBIN,TOTAL 0.3 MG/DL (0.3-1.2); CREATININE FOR GFR 4.63 MG/DL (0.55-1.30); GLOMERULAR FILTRATION RATE 9.6 (>32); POTASSIUM SERUM 6.2 MMOL/L (3.5-5.1); TOTAL PROTEIN 6.2 G/DL (5.7-8.2)
[2024-10-27] MEDS: NYSTATIN 100,000 UNITS/GM TOPICAL PWD 15GM TOP SCH (11:06)
[2024-10-27] MEDS: PATIROMER SORBITEX CALCIUM 8.4 GM POWDER PACKET (VELTASSA) PO SCH (12:09)
[2024-10-27 13:56] LABS: CALCIUM LEVEL 8.4 MG/DL (8.3-10.6); CREATININE FOR GFR 4.79 MG/DL (0.55-1.30); GLOMERULAR FILTRATION RATE 9.3 (>32); POTASSIUM SERUM 5.7 MMOL/L (3.5-5.1)
[2024-10-27 18:51] LABS: CALCIUM LEVEL 8.2 MG/DL (8.3-10.6); CREATININE FOR GFR 4.81 MG/DL (0.55-1.30); GLOMERULAR FILTRATION RATE 9.2 (>32); POTASSIUM SERUM 5.8 MMOL/L (3.5-5.1)
[2024-10-27 21:55] LABS: CREATININE FOR GFR 5.01 MG/DL (0.55-1.30); GLOMERULAR FILTRATION RATE 8.8 (>32); POTASSIUM SERUM 5.9 MMOL/L (3.5-5.1)
[2024-10-28] VITALS (20 sets, daily range): BP systolic 97–123; BP diastolic 50–59; TEMP 96.7–98.1; O2SAT 79–95
[2024-10-28 02:10] LABS: CALCIUM LEVEL 7.8 MG/DL (8.3-10.6); CREATININE FOR GFR 5.13 MG/DL (0.55-1.30); GLOMERULAR FILTRATION RATE 8.6 (>32); POTASSIUM SERUM 5.7 MMOL/L (3.5-5.1)
[2024-10-28] MEDS ORDERED: RAMELTEON 8 MG TAB (ROZEREM) PO PRN (02:10)
[2024-10-28] MEDS: SODIUM CHLORIDE 3% 500 ML IV SCH (02:30)
[2024-10-28] MEDS: CEFEPIME HCL 1 GM in DEXTROSE 5% (D5W) ADV/MINI-BAG 50 ML IV SCH (06:19)
[2024-10-28 07:32] LABS: BASO % 0.1 % (0.0-1.0); EOS % 0.1 % (0.0-3.0); HEMOGLOBIN 10.8 g/dl (12.0-15.5); LYMPH # 0.6 10^3/uL (1.5-5.0); MEAN CORPUSCULAR HEMOGLOBIN 29.2 pg (27.0-33.0); MEAN CORPUSCULAR HGB CONC 32.7 g/dl (32.0-36.5); MEAN CORPUSCULAR VOLUME 89.2 fl (80.0-96.0); MONO # 0.9 10^3/uL (0.0-0.8); MONO % 6.6 % (2.0-8.0); NEUTROPHILS # 12.4 10^3/uL (1.5-8.5); NEUTROPHILS % 87.8 % (36.0-66.0); PLATELET COUNT, AUTOMATED 452 10^3/uL (150-450); WHITE BLOOD COUNT 14.1 10^3/uL (4.0-10.0)
[2024-10-28 08:00] LABS: CALCIUM LEVEL 7.7 MG/DL (8.3-10.6); CREATININE FOR GFR 5.4 MG/DL (0.55-1.30); GLOMERULAR FILTRATION RATE 8.1 (>32); POTASSIUM SERUM 5.8 MMOL/L (3.5-5.1)
[2024-10-28] MEDS: INSULIN LISPRO (NovoLOG) PER UNIT SC SCH (08:05)
[2024-10-28] MEDS: SODIUM CHLORIDE 3% 500 ML IV ONE (10:45)
[2024-10-28] MEDS: PATIROMER SORBITEX CALCIUM 8.4 GM POWDER PACKET (VELTASSA) PO SCH (11:01)
[2024-10-28] MEDS: ACETAMINOPHEN 325 MG TAB PO PRN (17:57)
[2024-10-28 19:19] LABS: CALCIUM LEVEL 7.1 MG/DL (8.3-10.6); CREATININE FOR GFR 5.58 MG/DL (0.55-1.30); GLOMERULAR FILTRATION RATE 7.8 (>32); POTASSIUM SERUM 5.7 MMOL/L (3.5-5.1)
[2024-10-28 23:52] LABS: CALCIUM LEVEL 6.9 MG/DL (8.3-10.6); CREATININE FOR GFR 5.75 MG/DL (0.55-1.30); GLOMERULAR FILTRATION RATE 7.5 (>32); POTASSIUM SERUM 5.5 MMOL/L (3.5-5.1)
[2024-10-29] VITALS (11 sets, daily range): BP systolic 94–133; BP diastolic 48–76; PULSE 72; TEMP 97–98.1; O2SAT 92–96
[2024-10-29 05:14] LABS: BASO % 0.3 % (0.0-1.0); EOS # 0.1 10^3/uL (0.0-0.5); EOS % 0.5 % (0.0-3.0); HEMATOCRIT 33.2 % (36.0-47.0); HEMOGLOBIN 10.7 g/dl (12.0-15.5); LYMPH # 0.4 10^3/uL (1.5-5.0); LYMPH % 3.5 % (24.0-44.0); MEAN CORPUSCULAR HEMOGLOBIN 28.7 pg (27.0-33.0); MEAN CORPUSCULAR HGB CONC 32.2 g/dl (32.0-36.5); MONO # 0.7 10^3/uL (0.0-0.8); MONO % 6.4 % (2.0-8.0); NEUTROPHILS # 9.4 10^3/uL (1.5-8.5); NEUTROPHILS % 87.2 % (36.0-66.0); PLATELET COUNT, AUTOMATED 384 10^3/uL (150-450); RED BLOOD COUNT 3.73 10^6/uL (4.00-5.40); WHITE BLOOD COUNT 10.7 10^3/uL (4.0-10.0)
[2024-10-29 05:41] LABS: BLOOD UREA NITROGEN 86 MG/DL (9-23); CALCIUM LEVEL 7.3 MG/DL (8.3-10.6); CARBON DIOXIDE LEVEL 20 MMOL/L (20-31); CHLORIDE LEVEL 91 MMOL/L (98-107); CREATININE FOR GFR 6.07 MG/DL (0.55-1.30); GLOMERULAR FILTRATION RATE 7.1 (>32); GLUCOSE, FASTING 142 MG/DL (74-106); POTASSIUM SERUM 5.6 MMOL/L (3.5-5.1); SODIUM LEVEL 125 MMOL/L (136-145)
[2024-10-29 08:01] LABS: MAGNESIUM LEVEL 1.5 MG/DL (1.8-2.4)
[2024-10-29] MEDS ORDERED: HEPARIN 1,000UNITS/ML 10ML VIAL (FOR RADIOLOGY & DIALYSIS ONLY) IV PRN (08:35)
[2024-10-29] MEDS ORDERED: SODIUM CHLORIDE 0.9% 1000 ML IV PRN (08:35)
[2024-10-29] MEDS ORDERED: LIDOCAINE 1% SDV 5ML VIAL SC PRN (08:35)
[2024-10-29 09:46] LABS: HEPATITIS B SURFACE ANTIBODY NEGATIVE (POSITIVE)
[2024-10-29 09:58] LABS: HEPATITIS B SURFACE ANTIGEN NEGATIVE (NEGATIVE)
[2024-10-29 10:18] LABS: HEPATITIS C VIRUS ABY INDEX 0.04 INDEX (<0.8)
[2024-10-29 10:19] LABS: HEPATITIS B CORE ANTIBODY IGM NEGATIVE (NEGATIVE)
[2024-10-29 11:22] LABS: ANTI-STREPTOLYSIN O QUANT 65.5 IU/ML (<195); COMPLEMENT C3 122.5 MG/DL (90.0-170.0); COMPLEMENT C4 37.1 MG/DL (12-36); RHEUMATOID FACTOR QUANT < 3.5 IU/ML (<14)
[2024-10-29] MEDS: MAG SULF 1GM/100ML (MAG RUN) 1 GM in IV 1 EA IV ONE ×2 (11:30→15:39)
[2024-10-29] MEDS: HEPARIN 1,000UNITS/ML 10ML VIAL (FOR RADIOLOGY & DIALYSIS ONLY) XX SCH (12:18)
[2024-10-29 14:10] LABS: PROCALCITONIN 0.45 ng/ml
[2024-10-29 19:55] LABS: BASO % 0.2 % (0.0-1.0); EOS # 0.1 10^3/uL (0.0-0.5); EOS % 0.7 % (0.0-3.0); HEMATOCRIT 32.6 % (36.0-47.0); HEMOGLOBIN 10.6 g/dl (12.0-15.5); LYMPH # 0.5 10^3/uL (1.5-5.0); LYMPH % 3.7 % (24.0-44.0); MEAN CORPUSCULAR HEMOGLOBIN 28.9 pg (27.0-33.0); MEAN CORPUSCULAR HGB CONC 32.5 g/dl (32.0-36.5); MEAN CORPUSCULAR VOLUME 88.8 fl (80.0-96.0); MONO # 0.8 10^3/uL (0.0-0.8); MONO % 6.2 % (2.0-8.0); NEUTROPHILS # 11.1 10^3/uL (1.5-8.5); NEUTROPHILS % 87.5 % (36.0-66.0); PLATELET COUNT, AUTOMATED 327 10^3/uL (150-450); RED BLOOD COUNT 3.67 10^6/uL (4.00-5.40); WHITE BLOOD COUNT 12.7 10^3/uL (4.0-10.0)
[2024-10-29 20:22] LABS: CALCIUM LEVEL 7.2 MG/DL (8.3-10.6); CREATININE FOR GFR 5.31 MG/DL (0.55-1.30); GLOMERULAR FILTRATION RATE 8.2 (>32); POTASSIUM SERUM 4.9 MMOL/L (3.5-5.1)
[2024-10-30] VITALS (22 sets, daily range): BP systolic 102–132; BP diastolic 10–72; TEMP 97.1–97.5; O2SAT 87–99
[2024-10-30 05:38] LABS: BASO % 0.2 % (0.0-1.0); EOS # 0.1 10^3/uL (0.0-0.5); EOS % 0.7 % (0.0-3.0); HEMATOCRIT 32.2 % (36.0-47.0); HEMOGLOBIN 10.5 g/dl (12.0-15.5); LYMPH # 0.4 10^3/uL (1.5-5.0); LYMPH % 3.2 % (24.0-44.0); MEAN CORPUSCULAR HEMOGLOBIN 29.2 pg (27.0-33.0); MEAN CORPUSCULAR HGB CONC 32.6 g/dl (32.0-36.5); MEAN CORPUSCULAR VOLUME 89.4 fl (80.0-96.0); MONO # 0.7 10^3/uL (0.0-0.8); MONO % 5.2 % (2.0-8.0); NEUTROPHILS # 11.2 10^3/uL (1.5-8.5); NEUTROPHILS % 88.7 % (36.0-66.0); PLATELET COUNT, AUTOMATED 317 10^3/uL (150-450); WHITE BLOOD COUNT 12.6 10^3/uL (4.0-10.0)
[2024-10-30] MEDS ORDERED: LIDOCAINE 1% SDV 5ML VIAL SC PRN (06:00)
[2024-10-30] MEDS ORDERED: HEPARIN 1,000UNITS/ML 10ML VIAL (FOR RADIOLOGY & DIALYSIS ONLY) IV PRN (06:00)
[2024-10-30] MEDS ORDERED: SODIUM CHLORIDE 0.9% 1000 ML IV PRN (06:00)
[2024-10-30 06:02] LABS: CALCIUM LEVEL 7.2 MG/DL (8.3-10.6); CREATININE FOR GFR 5.69 MG/DL (0.55-1.30); GLOMERULAR FILTRATION RATE 7.6 (>32); POTASSIUM SERUM 4.8 MMOL/L (3.5-5.1)
[2024-10-30] MEDS: HEPARIN 1,000UNITS/ML 10ML VIAL (FOR RADIOLOGY & DIALYSIS ONLY) XX SCH (08:51)
[2024-10-30] MEDS ORDERED: AZITHROMYCIN INJ 500 MG, VIAL MATE ADAPTER 1 EACH in NS 250 ML IV SCH (12:00)
[2024-10-30] MEDS: AZITHROMYCIN 250MG TABLET PO SCH (12:56)
[2024-10-30] MEDS: HEPARIN SOD (PORCINE) 5000UNITS/ML 1ML VIAL/SYRINGE SQ SCH (13:00)
[2024-10-30] MEDS: IPRATROPIUM 0.5MG/ALBUTEROL 2.5MG INH SOL UD 3ML NEB SCH (13:31)
[2024-10-30] MEDS: metroNIDAZOLE 500 MG in IV 1 EA IV SCH (18:30)
[2024-10-30] MEDS: LATANOPROST 0.005% OPHTH SOLN 2.5 ML OU SCH (21:10)
[2024-10-30] MEDS: BRIMONIDINE 0.15% OPHTH SOLN 5 ML OU SCH (21:11)
[2024-10-30] MEDS: TIMOLOL MALEATE 0.5% OPHTH SOLN 5 ML OU SCH (21:11)
[2024-10-30 23:32] LABS: PROTEIN, TOTAL SO 5.4 g/dL (6.1-8.1)
[2024-10-31] VITALS (11 sets, daily range): BP systolic 92–131; BP diastolic 52–66; TEMP 96.9–98.8; O2SAT 84–96
[2024-10-31 05:25] LABS: BASO % 0.1 % (0.0-1.0); EOS # 0.1 10^3/uL (0.0-0.5); EOS % 1.2 % (0.0-3.0); HEMATOCRIT 29.6 % (36.0-47.0); HEMOGLOBIN 9.6 g/dl (12.0-15.5); LYMPH # 0.4 10^3/uL (1.5-5.0); LYMPH % 3.3 % (24.0-44.0); MEAN CORPUSCULAR HEMOGLOBIN 28.8 pg (27.0-33.0); MEAN CORPUSCULAR HGB CONC 32.4 g/dl (32.0-36.5); MEAN CORPUSCULAR VOLUME 88.9 fl (80.0-96.0); MONO # 0.9 10^3/uL (0.0-0.8); MONO % 7.5 % (2.0-8.0); NEUTROPHILS % 86.7 % (36.0-66.0); PLATELET COUNT, AUTOMATED 260 10^3/uL (150-450); RED BLOOD COUNT 3.33 10^6/uL (4.00-5.40); WHITE BLOOD COUNT 11.5 10^3/uL (4.0-10.0)
[2024-10-31 05:39] LABS: CALCIUM LEVEL 6.8 MG/DL (8.3-10.6); CREATININE FOR GFR 4.37 MG/DL (0.55-1.30); GLOMERULAR FILTRATION RATE 10.3 (>32); POTASSIUM SERUM 4.5 MMOL/L (3.5-5.1)
[2024-10-31] MEDS ORDERED: HEPARIN 1,000UNITS/ML 10ML VIAL (FOR RADIOLOGY & DIALYSIS ONLY) IV PRN (06:00)
[2024-10-31] MEDS ORDERED: LIDOCAINE 1% SDV 5ML VIAL SC PRN (06:00)
[2024-10-31] MEDS ORDERED: SODIUM CHLORIDE 0.9% 1000 ML IV PRN (06:00)
[2024-10-31 07:56] LABS: C REACTIVE PROTEIN QUANTITATIV 5.56 MG/DL (<1.0)
[2024-10-31 08:08] LABS: PROCALCITONIN 0.41 ng/ml
[2024-10-31] MEDS: METAMUCIL (PSYLLIUM) PACKET PO SCH (08:10)
[2024-10-31] MEDS: MIRALAX *UNIT DOSE* 17GM PACKET PO SCH (08:10)
[2024-10-31 08:11] LABS: ERYTHROCYTE SEDIMENTATION RATE 22 mm/hr (0-30)
[2024-10-31] MEDS: HEPARIN 1,000UNITS/ML 10ML VIAL (FOR RADIOLOGY & DIALYSIS ONLY) XX SCH (09:10)
[2024-10-31 13:52] LABS: FREE KAPPA LIGHT CHAINS SERUM 130.5 mg/L (3.3-19.4); FREE LAMBDA LIGHT CHAINS SERUM 57.7 mg/L (5.7-26.3); KAPPA/LAMBDA RATIO SERUM 2.26 (0.26-1.65)
[2024-10-31 15:12] LABS: ANA SCREEN, IFA NEGATIVE (NEGATIVE)
[2024-10-31 15:27] LABS: HEPATITIS B CORE ANTIBODY IGG NON-REACTIVE (NON-REACTIVE)
[2024-10-31] MEDS: AZITHROMYCIN INJ 500 MG, VIAL MATE ADAPTER 1 EACH in NS 250 ML IV SCH (16:15)
[2024-10-31 17:14] LABS: MAGNESIUM LEVEL 1.8 MG/DL (1.8-2.4)
[2024-10-31 17:18] LABS: FREE T4 0.88 NG/DL (0.89-1.76); THYROID STIMULATING HORMONE 3.238 uIU/ML (0.55-4.78)
[2024-10-31] MEDS: D5W IV SCH (17:48)
[2024-10-31] MEDS: CEFTAZIDIME IV SCH (17:48)
[2024-10-31] MEDS: METOPROLOL TART 50 MG TAB PO SCH (21:00)
[2024-11-01] VITALS (72 sets, daily range): BP systolic 68–147; BP diastolic 36–95; TEMP 94–98.5; O2SAT 91–100
[2024-11-01 00:15] LABS: BASO % 0.2 % (0.0-1.0); EOS # 0.2 10^3/uL (0.0-0.5); EOS % 1.2 % (0.0-3.0); HEMATOCRIT 25.4 % (36.0-47.0); HEMOGLOBIN 8.3 g/dl (12.0-15.5); LYMPH # 0.7 10^3/uL (1.5-5.0); LYMPH % 5.4 % (24.0-44.0); MEAN CORPUSCULAR HEMOGLOBIN 29.2 pg (27.0-33.0); MEAN CORPUSCULAR HGB CONC 32.7 g/dl (32.0-36.5); MEAN CORPUSCULAR VOLUME 89.4 fl (80.0-96.0); MONO % 7.9 % (2.0-8.0); NEUTROPHILS # 10.9 10^3/uL (1.5-8.5); NEUTROPHILS % 84.3 % (36.0-66.0); PLATELET COUNT, AUTOMATED 299 10^3/uL (150-450); RED BLOOD COUNT 2.84 10^6/uL (4.00-5.40); WHITE BLOOD COUNT 12.9 10^3/uL (4.0-10.0)
[2024-11-01] MEDS: METOPROLOL TART 25 MG TABLET PO ONE (01:19)
[2024-11-01] MEDS: MIDODRINE 5 MG TAB PO ONE (02:55)
[2024-11-01] MEDS: NS 500 ML IV ONE (05:29)
[2024-11-01] MEDS: PANTOPRAZOLE 40MG VIAL IV ONE (05:36)
[2024-11-01] MEDS: FAMOTIDINE 20MG/2ML VIAL IVP ONE (05:36)
[2024-11-01 05:41] LABS: BASO % 0.1 % (0.0-1.0); EOS # 0.1 10^3/uL (0.0-0.5); EOS % 0.9 % (0.0-3.0); LYMPH # 0.7 10^3/uL (1.5-5.0); LYMPH % 8.1 % (24.0-44.0); MEAN CORPUSCULAR HEMOGLOBIN 28.5 pg (27.0-33.0); MEAN CORPUSCULAR HGB CONC 31.9 g/dl (32.0-36.5); MEAN CORPUSCULAR VOLUME 89.3 fl (80.0-96.0); MONO # 0.7 10^3/uL (0.0-0.8); MONO % 8.7 % (2.0-8.0); NEUTROPHILS # 6.7 10^3/uL (1.5-8.5); NEUTROPHILS % 80.9 % (36.0-66.0); PLATELET COUNT, AUTOMATED 273 10^3/uL (150-450); RED BLOOD COUNT 2.14 10^6/uL (4.00-5.40); WHITE BLOOD COUNT 8.2 10^3/uL (4.0-10.0)
[2024-11-01 05:46] LABS: HEMATOCRIT 19.1 % (36.0-47.0)
[2024-11-01 05:47] LABS: HEMOGLOBIN 6.1 g/dl (12.0-15.5)
[2024-11-01] MEDS ORDERED: LIDOCAINE 1% SDV 5ML VIAL SC PRN (06:00)
[2024-11-01] MEDS ORDERED: HEPARIN 1,000UNITS/ML 10ML VIAL (FOR RADIOLOGY & DIALYSIS ONLY) IV PRN (06:00)
[2024-11-01] MEDS ORDERED: HEPARIN 1,000UNITS/ML 10ML VIAL (FOR RADIOLOGY & DIALYSIS ONLY) XX SCH (06:00)
[2024-11-01] MEDS ORDERED: SODIUM CHLORIDE 0.9% 1000 ML IV PRN (06:00)
[2024-11-01 06:06] LABS: CALCIUM LEVEL 6.3 MG/DL (8.3-10.6); CREATININE FOR GFR 2.38 MG/DL (0.55-1.30); GLOMERULAR FILTRATION RATE 20.8 (>32); POTASSIUM SERUM 4.5 MMOL/L (3.5-5.1)
[2024-11-01] MEDS: NOREPINEPHRINE 4MG IN D5 250ML 4 MG in IV 1 EA IV SCH (06:56)
[2024-11-01 06:57] LABS: ALBUMIN SO 2.8 g/dL (3.8-4.8); ALPHA 1 GLOBULINS SO 0.4 g/dL (0.2-0.3); ALPHA 2 GLOBULINS SO 0.8 g/dL (0.5-0.9); BETA 2 GLOBULIN SO 0.4 g/dL (0.2-0.5); BETA GLOBULIN SO 0.4 g/dL (0.4-0.6); GAMMA GLOBULINS SO 0.5 g/dL (0.8-1.7)
[2024-11-01] MEDS ORDERED: IPRATROPIUM 0.5MG/ALBUTEROL 2.5MG INH SOL UD 3ML NEB PRN (07:40)
[2024-11-01] MEDS: HEPARIN 1,000UNITS/ML 10ML VIAL (FOR RADIOLOGY & DIALYSIS ONLY) IV STA (08:52)
[2024-11-01 13:07] LABS: HEMATOCRIT 22.7 % (36.0-47.0); HEMOGLOBIN 7.6 g/dl (12.0-15.5); MEAN CORPUSCULAR HEMOGLOBIN 29.2 pg (27.0-33.0); MEAN CORPUSCULAR HGB CONC 33.5 g/dl (32.0-36.5); MEAN CORPUSCULAR VOLUME 87.3 fl (80.0-96.0); PLATELET COUNT, AUTOMATED 224 10^3/uL (150-450); WHITE BLOOD COUNT 10.3 10^3/uL (4.0-10.0)
[2024-11-01 13:20] LABS: INR 1.32; PARTIAL THROMBOPLASTIN TIME 29.5 SECONDS (24.8-34.2); PROTHROMBIN TIME 16.7 SECONDS (12.5-14.5)
[2024-11-01 13:34] LABS: ALBUMIN 1.9 G/DL (3.2-5.2); BILIRUBIN,TOTAL 0.5 MG/DL (0.3-1.2); CALCIUM LEVEL 6.5 MG/DL (8.3-10.6); CREATININE FOR GFR 2.47 MG/DL (0.55-1.30); GLOMERULAR FILTRATION RATE 19.9 (>32); POTASSIUM SERUM 3.9 MMOL/L (3.5-5.1); TOTAL PROTEIN 4.6 G/DL (5.7-8.2)
[2024-11-01] MEDS: PANTOPRAZOLE 40MG VIAL IV SCH (18:45)
[2024-11-01 19:01] LABS: HEMATOCRIT 26.8 % (36.0-47.0); HEMOGLOBIN 8.9 g/dl (12.0-15.5); MEAN CORPUSCULAR HEMOGLOBIN 28.8 pg (27.0-33.0); MEAN CORPUSCULAR HGB CONC 33.2 g/dl (32.0-36.5); MEAN CORPUSCULAR VOLUME 86.7 fl (80.0-96.0); PLATELET COUNT, AUTOMATED 219 10^3/uL (150-450); RED BLOOD COUNT 3.09 10^6/uL (4.00-5.40); WHITE BLOOD COUNT 9.9 10^3/uL (4.0-10.0)
[2024-11-01] MEDS ORDERED: METOPROLOL TART 25 MG TABLET PO ONE (20:45)
[2024-11-01 22:48] LABS: COMPLEMENT TOTAL (CH50) 53 U/mL (31-60)
[2024-11-02] VITALS (36 sets, daily range): BP systolic 100–149; BP diastolic 50–95; TEMP 97–97.8; O2SAT 81–100
[2024-11-02 00:34] LABS: HEMATOCRIT 25.2 % (36.0-47.0); HEMOGLOBIN 8.5 g/dl (12.0-15.5); MEAN CORPUSCULAR HEMOGLOBIN 28.9 pg (27.0-33.0); MEAN CORPUSCULAR HGB CONC 33.7 g/dl (32.0-36.5); MEAN CORPUSCULAR VOLUME 85.7 fl (80.0-96.0); PLATELET COUNT, AUTOMATED 205 10^3/uL (150-450); RED BLOOD COUNT 2.94 10^6/uL (4.00-5.40); WHITE BLOOD COUNT 9.8 10^3/uL (4.0-10.0)
[2024-11-02 04:37] LABS: HEMATOCRIT 24.7 % (36.0-47.0); HEMOGLOBIN 8.5 g/dl (12.0-15.5); MEAN CORPUSCULAR HEMOGLOBIN 29.2 pg (27.0-33.0); MEAN CORPUSCULAR HGB CONC 34.4 g/dl (32.0-36.5); MEAN CORPUSCULAR VOLUME 84.9 fl (80.0-96.0); PLATELET COUNT, AUTOMATED 220 10^3/uL (150-450); RED BLOOD COUNT 2.91 10^6/uL (4.00-5.40); WHITE BLOOD COUNT 9.7 10^3/uL (4.0-10.0)
[2024-11-02 05:16] LABS: BILIRUBIN,TOTAL 0.3 MG/DL (0.3-1.2); CREATININE FOR GFR 2.21 MG/DL (0.55-1.30); GLOMERULAR FILTRATION RATE 22.6 (>32); POTASSIUM SERUM 3.1 MMOL/L (3.5-5.1); TOTAL PROTEIN 4.7 G/DL (5.7-8.2)
[2024-11-02] MEDS: KCL 20MEQ IN 100ML SWI (KRUN) 20 MEQ in IV 1 EA IV ONE (05:41)
[2024-11-02] MEDS ORDERED: SIMETHICONE 40MG/0.6ML DROPS 30ML As Ordered ONE (06:12)
[2024-11-02] MEDS ORDERED: LIDOCAINE 2% 100MG/5ML SDV (FOR ANES.) As Ordered ONE (07:15)
[2024-11-02] MEDS ORDERED: propofoL 200 MG/20 ML VIAL As Ordered ONE (07:15)
[2024-11-02] MEDS: SUCRALFATE SUSP 1GM/10ML UD PO SCH (07:30)
[2024-11-02] MEDS: AMIODARONE HCL 150 MG in IV 1 EA IV ONE (08:14)
[2024-11-02] MEDS: AMIODARONE HCL 360 MG in IV 1 EA IV SCH ×2 (10:10→15:35)
[2024-11-02] MEDS: SODIUM CHLORIDE 0.9% INJ 10 ML SYR IV SCH (11:55)
[2024-11-02] MEDS ORDERED: SODIUM CHLORIDE 0.9% INJ 10 ML SYR IV PRN (11:55)
[2024-11-02] MEDS: LR 1,000 ML IV SCH (11:59)
[2024-11-02 13:33] LABS: MAGNESIUM LEVEL 1.4 MG/DL (1.8-2.4)
[2024-11-02 14:11] LABS: Antimyeloperxidase(MPO) Abs < 1.0 AI (<1.0); Antiproteinase 3 (PR-3) Abs < 1.0 AI (<1.0)
[2024-11-03] VITALS (22 sets, daily range): BP systolic 95–163; BP diastolic 49–77; TEMP 97–98; O2SAT 91–98
[2024-11-03 04:22] LABS: BASO % 0.3 % (0.0-1.0); EOS # 0.3 10^3/uL (0.0-0.5); EOS % 2.7 % (0.0-3.0); HEMOGLOBIN 7.5 g/dl (12.0-15.5); LYMPH # 0.8 10^3/uL (1.5-5.0); LYMPH % 7.7 % (24.0-44.0); MEAN CORPUSCULAR HEMOGLOBIN 28.8 pg (27.0-33.0); MEAN CORPUSCULAR HGB CONC 32.6 g/dl (32.0-36.5); MEAN CORPUSCULAR VOLUME 88.5 fl (80.0-96.0); MONO # 0.9 10^3/uL (0.0-0.8); MONO % 8.4 % (2.0-8.0); NEUTROPHILS # 7.8 10^3/uL (1.5-8.5); NEUTROPHILS % 77.5 % (36.0-66.0); PLATELET COUNT, AUTOMATED 189 10^3/uL (150-450); WHITE BLOOD COUNT 10.1 10^3/uL (4.0-10.0)
[2024-11-03 04:48] LABS: BILIRUBIN,TOTAL 0.2 MG/DL (0.3-1.2); CALCIUM LEVEL 7.9 MG/DL (8.3-10.6); CREATININE FOR GFR 1.63 MG/DL (0.55-1.30); GLOMERULAR FILTRATION RATE 32.2 (>32); MAGNESIUM LEVEL 1.1 MG/DL (1.8-2.4); POTASSIUM SERUM 3.1 MMOL/L (3.5-5.1); TOTAL PROTEIN 4.7 G/DL (5.7-8.2)
[2024-11-03] MEDS ORDERED: NS (Normal Saline) 0.9% 1,000 ML IV SCH (05:10)
[2024-11-03] MEDS: MAG SULF 1GM/100ML (MAG RUN) 1 GM in IV 1 EA IV SCH ×2 (05:31→12:13)
[2024-11-03] MEDS: KCL 20MEQ IN 100ML SWI (KRUN) 20 MEQ in IV 1 EA IV SCH (07:47)
[2024-11-03] MEDS: LR 1,000 ML IV SCH (11:10)
[2024-11-03] MEDS: DIGOXIN INJ 0.5 MG/2 ML AMP IV SCH (12:11)
[2024-11-03 14:38] LABS: URINE STREP PNEUMONIAE ANTIGEN NOT DETECTED (NOT DETECT)
[2024-11-03 16:32] LABS: HEMATOCRIT 27.1 % (36.0-47.0); MEAN CORPUSCULAR HEMOGLOBIN 29.2 pg (27.0-33.0); MEAN CORPUSCULAR HGB CONC 33.2 g/dl (32.0-36.5); PLATELET COUNT, AUTOMATED 202 10^3/uL (150-450); RED BLOOD COUNT 3.08 10^6/uL (4.00-5.40); WHITE BLOOD COUNT 11.4 10^3/uL (4.0-10.0)
[2024-11-03 18:12] LABS: L. PNEUMOPHILA <1:64 TITER (<1:64)
[2024-11-04] VITALS (19 sets, daily range): BP systolic 125–168; BP diastolic 59–97; TEMP 96.5–98; O2SAT 84–98
[2024-11-04 05:31] LABS: HEMATOCRIT 28.9 % (36.0-47.0); HEMOGLOBIN 9.4 g/dl (12.0-15.5); MEAN CORPUSCULAR HEMOGLOBIN 28.7 pg (27.0-33.0); MEAN CORPUSCULAR HGB CONC 32.5 g/dl (32.0-36.5); MEAN CORPUSCULAR VOLUME 88.4 fl (80.0-96.0); PLATELET COUNT, AUTOMATED 220 10^3/uL (150-450); RED BLOOD COUNT 3.27 10^6/uL (4.00-5.40); WHITE BLOOD COUNT 11.2 10^3/uL (4.0-10.0)
[2024-11-04 05:42] LABS: DIGOXIN LEVEL 0.3 NG/ML (0.8-2.0)
[2024-11-04 05:44] LABS: ALBUMIN 2.3 G/DL (3.2-5.2); BILIRUBIN,TOTAL 0.3 MG/DL (0.3-1.2); CREATININE FOR GFR 1.16 MG/DL (0.55-1.30); GLOMERULAR FILTRATION RATE 47.6 (>32); MAGNESIUM LEVEL 1.9 MG/DL (1.8-2.4); POTASSIUM SERUM 3.3 MMOL/L (3.5-5.1); TOTAL PROTEIN 5.2 G/DL (5.7-8.2)
[2024-11-04] MEDS: MAG SULF 1GM/100ML (MAG RUN) 1 GM in IV 1 EA IV SCH (08:14)
[2024-11-04] MEDS: POTASSIUM CHLORIDE 10% LIQ 20MEQ/15ML UDC PO ONE (08:14)
[2024-11-04] MEDS: DIGOXIN INJ 0.5 MG/2 ML AMP IV STA (08:15)
[2024-11-04 10:09] LABS: ABG BASE EXCESS -4.4 (-2.0-2.0); ABG O2 SATURATION 96.7 % (95.0-99.0); ABG PARTIAL PRESSURE O2 94.4 mmHg (75.0-100.0); ABG STANDARD HCO3 20.8 MMOL/L. (22.0-26.0); ABG TOTAL CO2 25.9 MMOL/L (23.0-31.0)
[2024-11-04 10:11] LABS: ABG PARTIAL PRESSURE CO2 61.4 mmHg (35.0-45.0)
[2024-11-04 10:20] LABS: C REACTIVE PROTEIN QUANTITATIV 2.49 MG/DL (<1.0)
[2024-11-04 10:22] LABS: ERYTHROCYTE SEDIMENTATION RATE 6 mm/hr (0-30)
[2024-11-04 10:32] LABS: PROCALCITONIN 0.22 ng/ml
[2024-11-04] MEDS: KCL 10MEQ/100ML SWI (KRUN) 10 MEQ in IV 1 EA IV SCH (10:32)
[2024-11-04] MEDS: FUROSEMIDE 40MG/4ML VIAL IV SCH (12:01)
[2024-11-04] MEDS ORDERED: KCL 20MEQ IN 0.45NS 1000ML 1,000 ML IV SCH (13:00)
[2024-11-04] MEDS: DIGOXIN INJ 0.5 MG/2 ML AMP IV ONE (14:49)
[2024-11-04] MEDS: FUROSEMIDE 20MG/2ML VIAL IV ONE (14:53)
[2024-11-04 18:09] LABS: CALCIUM LEVEL 8.3 MG/DL (8.3-10.6); CREATININE FOR GFR 1.09 MG/DL (0.55-1.30); GLOMERULAR FILTRATION RATE 51.2 (>32); MAGNESIUM LEVEL 2.2 MG/DL (1.8-2.4)
[2024-11-04] MEDS ORDERED: DIGOXIN INJ 0.5 MG/2 ML AMP IV ONE (20:00)
[2024-11-04] MEDS: FUROSEMIDE 100MG/10ML VIAL IV SCH (20:57)
[2024-11-04] MEDS: metOLazone 5 MG TAB PO ONE (20:57)
[2024-11-04 21:37] LABS: ABG BASE EXCESS 2.6 (-2.0-2.0); ABG HCO3 28.9 MMOL/L (22.0-26.0); ABG O2 SATURATION 97.9 % (95.0-99.0); ABG PARTIAL PRESSURE CO2 53.4 mmHg (35.0-45.0); ABG PARTIAL PRESSURE O2 115.4 mmHg (75.0-100.0); ABG STANDARD HCO3 26.8 MMOL/L. (22.0-26.0); ABG TOTAL CO2 30.5 MMOL/L (23.0-31.0); ABG pH (ARTERIAL) 7.351 UNITS (7.350-7.450)
[2024-11-05] VITALS (22 sets, daily range): BP systolic 122–187; BP diastolic 56–77; TEMP 97.6–98.5; O2SAT 92–100
[2024-11-05 00:05] LABS: ABG BASE EXCESS 4.9 (-2.0-2.0); ABG O2 SATURATION 98.1 % (95.0-99.0); ABG PARTIAL PRESSURE CO2 54.2 mmHg (35.0-45.0); ABG PARTIAL PRESSURE O2 105.1 mmHg (75.0-100.0); ABG STANDARD HCO3 28.9 MMOL/L. (22.0-26.0); ABG TOTAL CO2 32.6 MMOL/L (23.0-31.0); ABG pH (ARTERIAL) 7.375 UNITS (7.350-7.450)
[2024-11-05 00:13] LABS: ANCA SCREEN REFLEX Negative (Negative)
[2024-11-05 01:06] LABS: CALCIUM LEVEL 8.3 MG/DL (8.3-10.6); CREATININE FOR GFR 1.02 MG/DL (0.55-1.30); GLOMERULAR FILTRATION RATE 55.2 (>32); POTASSIUM SERUM 3.5 MMOL/L (3.5-5.1)
[2024-11-05 06:43] LABS: HEMATOCRIT 28.2 % (36.0-47.0); MEAN CORPUSCULAR HEMOGLOBIN 28.7 pg (27.0-33.0); MEAN CORPUSCULAR HGB CONC 31.9 g/dl (32.0-36.5); MEAN CORPUSCULAR VOLUME 89.8 fl (80.0-96.0); PLATELET COUNT, AUTOMATED 203 10^3/uL (150-450); RED BLOOD COUNT 3.14 10^6/uL (4.00-5.40); WHITE BLOOD COUNT 8.6 10^3/uL (4.0-10.0)
[2024-11-05 07:12] LABS: ALBUMIN 2.3 G/DL (3.2-5.2); ALKALINE PHOSPHATASE 51 U/L (35-104); ALT/SGPT 33 U/L (7.0-40); AST/SGOT 16 U/L (<34); BILIRUBIN,TOTAL 0.4 MG/DL (0.3-1.2); BLOOD UREA NITROGEN 33 MG/DL (9-23); CALCIUM LEVEL 8.7 MG/DL (8.3-10.6); CARBON DIOXIDE LEVEL 33 MMOL/L (20-31); CHLORIDE LEVEL 101 MMOL/L (98-107); CREATININE FOR GFR 1.01 MG/DL (0.55-1.30); GLOMERULAR FILTRATION RATE 55.9 (>32); GLUCOSE, FASTING 199 MG/DL (74-106); MAGNESIUM LEVEL 1.8 MG/DL (1.8-2.4); POTASSIUM SERUM 3.3 MMOL/L (3.5-5.1); SODIUM LEVEL 144 MMOL/L (136-145); TOTAL PROTEIN 5.3 G/DL (5.7-8.2)
[2024-11-05] MEDS: MAG SULF 1GM/100ML (MAG RUN) 1 GM in IV 1 EA IV SCH (09:09)
[2024-11-05] MEDS: POTASSIUM CHLORIDE 10% LIQ 20MEQ/15ML UDC PO ONE (09:10)
[2024-11-05] MEDS: DIGOXIN INJ 0.5 MG/2 ML AMP IV SCH (10:22)
[2024-11-05 11:16] LABS: IRON (FE) 32 UG/DL (50-170); PERCENT SATURATION 11.9 % (13.2-45.0); TOTAL IRON BINDING CAPACITY 270 UG/DL (250-425)
[2024-11-05 11:18] LABS: FOLATE 12.05 NG/ML (>5.4)
[2024-11-05 11:19] LABS: FERRITIN 82.2 NG/ML (7.3-270.7)
[2024-11-05 11:40] LABS: VITAMIN B12 LEVEL > 2000 PG/ML (211-911)
[2024-11-05] MEDS: KCL 10MEQ/100ML SWI (KRUN) 10 MEQ in IV 1 EA IV SCH (12:17)
[2024-11-05] MEDS: FERRIC CARBOXYMALTOSE INJ 750 MG, VIAL MATE ADAPTER 1 EACH in NS 100 ML IV ONE (16:45)
[2024-11-05] MEDS: LABETALOL 100MG/20ML VIAL IV ONE (16:45)
[2024-11-05 18:08] LABS: DIGOXIN LEVEL 1.2 NG/ML (0.8-2.0)
[2024-11-05 18:12] LABS: CALCIUM LEVEL 8.2 MG/DL (8.3-10.6); CREATININE FOR GFR 0.98 MG/DL (0.55-1.30); GLOMERULAR FILTRATION RATE 57.8 (>32); POTASSIUM SERUM 4.2 MMOL/L (3.5-5.1)
[2024-11-05] MEDS ORDERED: GLUCOSE 4 GM CHEW PO PRN (18:35)
[2024-11-05] MEDS ORDERED: GLUCAGON INJ 1MG VIAL SC PRN (18:35)
[2024-11-05] MEDS: INSULIN LISPRO (NovoLOG) PER UNIT SC STA (18:50)
[2024-11-05 19:06] LABS: HEMOGLOBIN A1c 6.8 % (4.0-6.0)
[2024-11-05] MEDS: INSULIN LISPRO (NovoLOG) PER UNIT SC SCH (20:36)
[2024-11-05] MEDS: LanTUS (INSULIN GLARGINE INJ) 1 UNITS/0.01 ML SC SCH (20:36)
[2024-11-06] VITALS (26 sets, daily range): BP systolic 105–162; BP diastolic 60–82; TEMP 97.1–98.5; O2SAT 91–98
[2024-11-06 06:02] LABS: HEMATOCRIT 28.6 % (36.0-47.0); HEMOGLOBIN 9.5 g/dl (12.0-15.5); MEAN CORPUSCULAR HEMOGLOBIN 29.4 pg (27.0-33.0); MEAN CORPUSCULAR HGB CONC 33.2 g/dl (32.0-36.5); MEAN CORPUSCULAR VOLUME 88.5 fl (80.0-96.0); PLATELET COUNT, AUTOMATED 216 10^3/uL (150-450); RED BLOOD COUNT 3.23 10^6/uL (4.00-5.40); WHITE BLOOD COUNT 10.9 10^3/uL (4.0-10.0)
[2024-11-06 06:32] LABS: ALBUMIN 2.5 G/DL (3.2-5.2); ALKALINE PHOSPHATASE 58 U/L (35-104); ALT/SGPT 29 U/L (7.0-40); AST/SGOT 16 U/L (<34); BILIRUBIN,TOTAL 0.5 MG/DL (0.3-1.2); BLOOD UREA NITROGEN 27 MG/DL (9-23); CALCIUM LEVEL 8.7 MG/DL (8.3-10.6); CARBON DIOXIDE LEVEL 37 MMOL/L (20-31); CHLORIDE LEVEL 97 MMOL/L (98-107); CREATININE FOR GFR 0.89 MG/DL (0.55-1.30); GLOMERULAR FILTRATION RATE > 60.0 (>32); GLUCOSE, FASTING 127 MG/DL (74-106); POTASSIUM SERUM 3.6 MMOL/L (3.5-5.1); SODIUM LEVEL 139 MMOL/L (136-145); TOTAL PROTEIN 5.7 G/DL (5.7-8.2)
[2024-11-06] MEDS ORDERED: PANTOPRAZOLE 40MG VIAL IV SCH (09:00)
[2024-11-06] MEDS: POTASSIUM CHLORIDE 10MEQ SR TABLET PO ONE (09:32)
[2024-11-06] MEDS: INSULIN LISPRO (NovoLOG) PER UNIT SC SCH (09:33)
[2024-11-06] MEDS: MAG SULF 1GM/100ML (MAG RUN) 1 GM in IV 1 EA IV SCH (09:34)
[2024-11-06] MEDS: METOPROLOL TART 50 MG TAB PO SCH (12:05)
[2024-11-06] MEDS: HEPARIN SOD (PORCINE) 5000UNITS/ML 1ML VIAL/SYRINGE SQ SCH (13:09)
[2024-11-06 19:13] LABS: BLOOD UREA NITROGEN 30 MG/DL (9-23); CALCIUM LEVEL 8.7 MG/DL (8.3-10.6); CARBON DIOXIDE LEVEL 38 MMOL/L (20-31); CHLORIDE LEVEL 90 MMOL/L (98-107); CREATININE FOR GFR 0.91 MG/DL (0.55-1.30); GLOMERULAR FILTRATION RATE > 60.0 (>32); GLUCOSE, FASTING 288 MG/DL (74-106); MAGNESIUM LEVEL 2.1 MG/DL (1.8-2.4); POTASSIUM SERUM 3.9 MMOL/L (3.5-5.1); SODIUM LEVEL 134 MMOL/L (136-145)
[2024-11-06] MEDS: PANTOPRAZOLE 40MG TAB (PROTONIX) PO SCH (20:54)
[2024-11-07] VITALS (22 sets, daily range): BP systolic 110–129; BP diastolic 46–64; TEMP 97.7–98.1; O2SAT 82–95
[2024-11-07 06:44] LABS: HEMATOCRIT 28.9 % (36.0-47.0); HEMOGLOBIN 9.2 g/dl (12.0-15.5); MEAN CORPUSCULAR HEMOGLOBIN 28.7 pg (27.0-33.0); MEAN CORPUSCULAR HGB CONC 31.8 g/dl (32.0-36.5); PLATELET COUNT, AUTOMATED 224 10^3/uL (150-450); RED BLOOD COUNT 3.21 10^6/uL (4.00-5.40)
[2024-11-07 07:11] LABS: ALBUMIN 2.5 G/DL (3.2-5.2); ALKALINE PHOSPHATASE 58 U/L (35-104); ALT/SGPT 24 U/L (7.0-40); AST/SGOT 13 U/L (<34); BILIRUBIN,TOTAL 0.5 MG/DL (0.3-1.2); BLOOD UREA NITROGEN 27 MG/DL (9-23); CALCIUM LEVEL 8.6 MG/DL (8.3-10.6); CARBON DIOXIDE LEVEL > 40.0 MMOL/L (20-31); CHLORIDE LEVEL 90 MMOL/L (98-107); CREATININE FOR GFR 0.91 MG/DL (0.55-1.30); GLOMERULAR FILTRATION RATE > 60.0 (>32); GLUCOSE, FASTING 185 MG/DL (74-106); MAGNESIUM LEVEL 1.6 MG/DL (1.8-2.4); POTASSIUM SERUM 3.6 MMOL/L (3.5-5.1); SODIUM LEVEL 135 MMOL/L (136-145); TOTAL PROTEIN 5.7 G/DL (5.7-8.2)
[2024-11-07] MEDS: LanTUS (INSULIN GLARGINE INJ) 1 UNITS/0.01 ML SC SCH (08:25)
[2024-11-07] MEDS: POTASSIUM CHLORIDE 10MEQ SR TABLET PO ONE (11:09)
[2024-11-07] MEDS: MAG SULF 1GM/100ML (MAG RUN) 1 GM in IV 1 EA IV SCH (11:10)
[2024-11-07] MEDS: FUROSEMIDE 100MG/10ML VIAL IV SCH (17:12)
[2024-11-07] MEDS: RAMELTEON 8 MG TAB (ROZEREM) PO SCH (21:18)
[2024-11-07 23:38] LABS: BLOOD UREA NITROGEN 29 MG/DL (9-23); CALCIUM LEVEL 7.9 MG/DL (8.3-10.6); CARBON DIOXIDE LEVEL > 40.0 MMOL/L (20-31); CHLORIDE LEVEL 93 MMOL/L (98-107); CREATININE FOR GFR 0.98 MG/DL (0.55-1.30); GLOMERULAR FILTRATION RATE 57.8 (>32); GLUCOSE, FASTING 203 MG/DL (74-106); MAGNESIUM LEVEL 2.1 MG/DL (1.8-2.4); POTASSIUM SERUM 3.6 MMOL/L (3.5-5.1); SODIUM LEVEL 133 MMOL/L (136-145)
[2024-11-08] VITALS (22 sets, daily range): BP systolic 108–121; BP diastolic 48–60; TEMP 97.1–97.4; O2SAT 91–98
[2024-11-08 07:22] LABS: HEMATOCRIT 28.8 % (36.0-47.0); HEMOGLOBIN 9.1 g/dl (12.0-15.5); MEAN CORPUSCULAR HEMOGLOBIN 29.2 pg (27.0-33.0); MEAN CORPUSCULAR HGB CONC 31.6 g/dl (32.0-36.5); MEAN CORPUSCULAR VOLUME 92.3 fl (80.0-96.0); PLATELET COUNT, AUTOMATED 229 10^3/uL (150-450); RED BLOOD COUNT 3.12 10^6/uL (4.00-5.40); WHITE BLOOD COUNT 9.5 10^3/uL (4.0-10.0)
[2024-11-08 07:53] LABS: ALBUMIN 2.2 G/DL (3.2-5.2); ALKALINE PHOSPHATASE 54 U/L (35-104); ALT/SGPT 19 U/L (7.0-40); AST/SGOT 13 U/L (<34); BILIRUBIN,TOTAL 0.3 MG/DL (0.3-1.2); BLOOD UREA NITROGEN 28 MG/DL (9-23); CALCIUM LEVEL 8.1 MG/DL (8.3-10.6); CARBON DIOXIDE LEVEL > 40.0 MMOL/L (20-31); CHLORIDE LEVEL 94 MMOL/L (98-107); CREATININE FOR GFR 0.85 MG/DL (0.55-1.30); GLOMERULAR FILTRATION RATE > 60.0 (>32); GLUCOSE, FASTING 99 MG/DL (74-106); MAGNESIUM LEVEL 1.9 MG/DL (1.8-2.4); POTASSIUM SERUM 3.6 MMOL/L (3.5-5.1); SODIUM LEVEL 137 MMOL/L (136-145); TOTAL PROTEIN 5.2 G/DL (5.7-8.2)
[2024-11-08] MEDS: TORSEMIDE 20 MG TAB PO SCH (08:42)
[2024-11-08] MEDS: POTASSIUM CHLORIDE 10MEQ SR TABLET PO ONE (11:44)
[2024-11-08] MEDS: MAG SULF 1GM/100ML (MAG RUN) 1 GM in IV 1 EA IV SCH (11:44)
[2024-11-08] MEDS: LanTUS (INSULIN GLARGINE INJ) 1 UNITS/0.01 ML SC ONE (11:54)
[2024-11-08] MEDS: LanTUS (INSULIN GLARGINE INJ) 1 UNITS/0.01 ML SC SCH (20:41)
[2024-11-09 02:00] VITALS: O2SAT 92
[2024-11-09 03:14] VITALS: BP 109/46; TEMP 97.5; O2SAT 94
[2024-11-09] MEDS: IPRATROPIUM 0.5MG/ALBUTEROL 2.5MG INH SOL UD 3ML NEB SCH (08:00)
[2024-11-09] MEDS: LanTUS (INSULIN GLARGINE INJ) 1 UNITS/0.01 ML SC SCH ×2 (08:15→20:22)
[2024-11-09 08:45] VITALS: BP 129/61; TEMP 97.5; O2SAT 91
[2024-11-09 14:50] LABS: HEMATOCRIT 28.3 % (36.0-47.0); HEMOGLOBIN 8.8 g/dl (12.0-15.5); MEAN CORPUSCULAR HGB CONC 31.1 g/dl (32.0-36.5); MEAN CORPUSCULAR VOLUME 93.4 fl (80.0-96.0); PLATELET COUNT, AUTOMATED 212 10^3/uL (150-450); RED BLOOD COUNT 3.03 10^6/uL (4.00-5.40)
[2024-11-09 15:24] LABS: ALBUMIN 2.4 G/DL (3.2-5.2); BILIRUBIN,TOTAL 0.3 MG/DL (0.3-1.2); CALCIUM LEVEL 7.6 MG/DL (8.3-10.6); CREATININE FOR GFR 1.03 MG/DL (0.55-1.30); GLOMERULAR FILTRATION RATE 54.6 (>32); POTASSIUM SERUM 3.6 MMOL/L (3.5-5.1); TOTAL PROTEIN 5.4 G/DL (5.7-8.2)
[2024-11-09] MEDS: QUEtiapine FUMARATE 12.5 MG HALF-TAB PO PRN (20:15)
[2024-11-10 05:36] VITALS: BP 131/46; TEMP 97.5; O2SAT 92
[2024-11-10] MEDS ORDERED: QUEtiapine FUMARATE 25 MG TAB PO PRN (08:00)
[2024-11-11 03:53] VITALS: BP 117/49; TEMP 97.9; O2SAT 91
[2024-11-11] MEDS: QUEtiapine FUMARATE 25 MG TAB PO PRN (21:03)
[2024-11-12 04:12] VITALS: BP 114/54; TEMP 96.8; O2SAT 94
[2024-11-12] MEDS: DEXTROSE 50% 50ML SYRINGE IV PRN (06:45)
[2024-11-12] MEDS ORDERED: LanTUS (INSULIN GLARGINE INJ) 1 UNITS/0.01 ML SC SCH (09:00)
[2024-11-12 23:48] LABS: VENOUS BASE EXCESS 8.4 (-2.0-2.0); VENOUS HCO3 31.8 MMOL/L (23.0-27.0); VENOUS O2 SATURATION 99.1 % (60.0-80.0); VENOUS PARTIAL PRESSURE CO2 39.7 mmHg (38.0-50.0); VENOUS PARTIAL PRESSURE O2 174.4 mmHg (30.0-50.0); VENOUS PH 7.522 UNITS (7.330-7.430); VENOUS STANDARD HCO3 32.2 MMOL/L; VENOUS TOTAL CO2 33.1 MMOL/L (24.0-28.0)
[2024-11-13 00:19] LABS: BASO # 0.1 10^3/uL (0.0-0.2); BASO % 0.6 % (0.0-1.0); EOS # 0.2 10^3/uL (0.0-0.5); EOS % 2.5 % (0.0-3.0); HEMATOCRIT 27.6 % (36.0-47.0); HEMOGLOBIN 8.3 g/dl (12.0-15.5); LYMPH # 1.1 10^3/uL (1.5-5.0); LYMPH % 13.4 % (24.0-44.0); MEAN CORPUSCULAR HEMOGLOBIN 28.8 pg (27.0-33.0); MEAN CORPUSCULAR HGB CONC 30.1 g/dl (32.0-36.5); MEAN CORPUSCULAR VOLUME 95.8 fl (80.0-96.0); MONO # 0.6 10^3/uL (0.0-0.8); MONO % 7.5 % (2.0-8.0); NEUTROPHILS # 6.4 10^3/uL (1.5-8.5); NEUTROPHILS % 75.2 % (36.0-66.0); PLATELET COUNT, AUTOMATED 200 10^3/uL (150-450); RED BLOOD COUNT 2.88 10^6/uL (4.00-5.40); WHITE BLOOD COUNT 8.5 10^3/uL (4.0-10.0)
[2024-11-13 00:48] LABS: ALBUMIN 2.3 G/DL (3.2-5.2); ALKALINE PHOSPHATASE 66 U/L (35-104); ALT/SGPT 15 U/L (7.0-40); AST/SGOT 20 U/L (<34); BILIRUBIN,TOTAL 0.2 MG/DL (0.3-1.2); BLOOD UREA NITROGEN 17 MG/DL (9-23); CALCIUM LEVEL 7.3 MG/DL (8.3-10.6); CARBON DIOXIDE LEVEL 33 MMOL/L (20-31); CHLORIDE LEVEL 96 MMOL/L (98-107); CREATININE FOR GFR 0.64 MG/DL (0.55-1.30); GLOMERULAR FILTRATION RATE > 60.0 (>32); GLUCOSE, FASTING 250 MG/DL (74-106); POTASSIUM SERUM 4.1 MMOL/L (3.5-5.1); SODIUM LEVEL 134 MMOL/L (136-145); TOTAL PROTEIN 5.5 G/DL (5.7-8.2)
[2024-11-13] MEDS: MAG SULF 1GM/100ML (MAG RUN) 1 GM in IV 1 EA IV SCH (02:26)
[2024-11-13] MEDS: MAGNESIUM OXIDE 400MG TAB (MAG-OX) PO ONE (02:29)
[2024-11-13 03:29] VITALS: BP 123/62; TEMP 98.1
[2024-11-13 08:00] VITALS: BP 147/54; TEMP 96.4; O2SAT 94
[2024-11-13 08:11] LABS: BASO # 0.1 10^3/uL (0.0-0.2); BASO % 1.2 % (0.0-1.0); EOS # 0.3 10^3/uL (0.0-0.5); EOS % 4.1 % (0.0-3.0); HEMATOCRIT 28.3 % (36.0-47.0); HEMOGLOBIN 8.6 g/dl (12.0-15.5); LYMPH % 16.1 % (24.0-44.0); MEAN CORPUSCULAR HEMOGLOBIN 29.3 pg (27.0-33.0); MEAN CORPUSCULAR HGB CONC 30.4 g/dl (32.0-36.5); MEAN CORPUSCULAR VOLUME 96.3 fl (80.0-96.0); MONO # 0.8 10^3/uL (0.0-0.8); MONO % 12.7 % (2.0-8.0); NEUTROPHILS # 3.9 10^3/uL (1.5-8.5); NEUTROPHILS % 65.1 % (36.0-66.0); PLATELET COUNT, AUTOMATED 196 10^3/uL (150-450); RED BLOOD COUNT 2.94 10^6/uL (4.00-5.40)
[2024-11-13] MEDS: MAGNESIUM OXIDE 400MG TAB (MAG-OX) PO SCH (08:33)
[2024-11-13 08:42] LABS: BLOOD UREA NITROGEN 12 MG/DL (9-23); CALCIUM LEVEL 7.6 MG/DL (8.3-10.6); CARBON DIOXIDE LEVEL 37 MMOL/L (20-31); CHLORIDE LEVEL 99 MMOL/L (98-107); CREATININE FOR GFR 0.54 MG/DL (0.55-1.30); GLOMERULAR FILTRATION RATE > 60.0 (>32); GLUCOSE, FASTING 148 MG/DL (74-106); MAGNESIUM LEVEL 1.6 MG/DL (1.8-2.4); POTASSIUM SERUM 3.8 MMOL/L (3.5-5.1); SODIUM LEVEL 140 MMOL/L (136-145)
[2024-11-13] MEDS ORDERED: LanTUS (INSULIN GLARGINE INJ) 1 UNITS/0.01 ML SC SCH (09:00)
[2024-11-13 12:00] VITALS: BP 112/52; TEMP 97.9; O2SAT 93
[2024-11-13 19:49] VITALS: BP 116/58; TEMP 97.8; O2SAT 94
[2024-11-13] MEDS: SYMBICORT 160/4.5MCG INHALER 6GM INH SCH (20:00)
[2024-11-14] VITALS: BP 122/52; TEMP 97.9; O2SAT 96
[2024-11-14 03:57] VITALS: BP 104/51; TEMP 98.1; O2SAT 92
[2024-11-14 06:52] LABS: BASO # 0.1 10^3/uL (0.0-0.2); EOS # 0.3 10^3/uL (0.0-0.5); EOS % 4.6 % (0.0-3.0); HEMATOCRIT 26.7 % (36.0-47.0); HEMOGLOBIN 8.3 g/dl (12.0-15.5); LYMPH # 1.1 10^3/uL (1.5-5.0); LYMPH % 16.5 % (24.0-44.0); MEAN CORPUSCULAR HGB CONC 31.1 g/dl (32.0-36.5); MEAN CORPUSCULAR VOLUME 96.4 fl (80.0-96.0); MONO # 0.8 10^3/uL (0.0-0.8); MONO % 12.4 % (2.0-8.0); NEUTROPHILS # 4.3 10^3/uL (1.5-8.5); NEUTROPHILS % 64.8 % (36.0-66.0); PLATELET COUNT, AUTOMATED 198 10^3/uL (150-450); RED BLOOD COUNT 2.77 10^6/uL (4.00-5.40); WHITE BLOOD COUNT 6.7 10^3/uL (4.0-10.0)
[2024-11-14 07:22] LABS: BLOOD UREA NITROGEN 11 MG/DL (9-23); CALCIUM LEVEL 7.9 MG/DL (8.3-10.6); CARBON DIOXIDE LEVEL 37 MMOL/L (20-31); CHLORIDE LEVEL 98 MMOL/L (98-107); CREATININE FOR GFR 0.62 MG/DL (0.55-1.30); GLOMERULAR FILTRATION RATE > 60.0 (>32); GLUCOSE, FASTING 218 MG/DL (74-106); MAGNESIUM LEVEL 1.3 MG/DL (1.8-2.4); SODIUM LEVEL 139 MMOL/L (136-145)
[2024-11-14] MEDS: MAG SULF 1GM/100ML (MAG RUN) 1 GM in IV 1 EA IV SCH (10:03)
[2024-11-14 12:00] VITALS: BP 109/47; TEMP 97.7; O2SAT 91
[2024-11-14 16:00] VITALS: BP 120/46; TEMP 97.9; O2SAT 93
[2024-11-14] MEDS: MAGNESIUM OXIDE 400MG TAB (MAG-OX) PO SCH (17:05)
[2024-11-14 20:26] VITALS: BP 127/55; TEMP 98.1; O2SAT 95
[2024-11-14 23:54] VITALS: BP 128/54; TEMP 97.7; O2SAT 89
[2024-11-15 00:44] VITALS: O2SAT 92
[2024-11-15 04:05] VITALS: BP 143/46; TEMP 97.9; O2SAT 89
[2024-11-15 06:14] LABS: BASO # 0.1 10^3/uL (0.0-0.2); BASO % 1.1 % (0.0-1.0); EOS # 0.3 10^3/uL (0.0-0.5); EOS % 4.6 % (0.0-3.0); HEMATOCRIT 27.9 % (36.0-47.0); HEMOGLOBIN 8.7 g/dl (12.0-15.5); LYMPH # 1.1 10^3/uL (1.5-5.0); LYMPH % 15.6 % (24.0-44.0); MEAN CORPUSCULAR HEMOGLOBIN 30.2 pg (27.0-33.0); MEAN CORPUSCULAR HGB CONC 31.2 g/dl (32.0-36.5); MEAN CORPUSCULAR VOLUME 96.9 fl (80.0-96.0); MONO # 0.8 10^3/uL (0.0-0.8); MONO % 10.7 % (2.0-8.0); NEUTROPHILS # 4.8 10^3/uL (1.5-8.5); NEUTROPHILS % 67.4 % (36.0-66.0); PLATELET COUNT, AUTOMATED 231 10^3/uL (150-450); RED BLOOD COUNT 2.88 10^6/uL (4.00-5.40); WHITE BLOOD COUNT 7.1 10^3/uL (4.0-10.0)
[2024-11-15 06:40] LABS: BLOOD UREA NITROGEN 12 MG/DL (9-23); CALCIUM LEVEL 8.2 MG/DL (8.3-10.6); CARBON DIOXIDE LEVEL 35 MMOL/L (20-31); CHLORIDE LEVEL 95 MMOL/L (98-107); CREATININE FOR GFR 0.56 MG/DL (0.55-1.30); GLOMERULAR FILTRATION RATE > 60.0 (>32); GLUCOSE, FASTING 255 MG/DL (74-106); MAGNESIUM LEVEL 1.7 MG/DL (1.8-2.4); POTASSIUM SERUM 4.5 MMOL/L (3.5-5.1); SODIUM LEVEL 136 MMOL/L (136-145)
[2024-11-15 08:00] VITALS: BP 139/62; TEMP 97; O2SAT 92
[2024-11-15] MEDS: MAG SULF 1GM/100ML (MAG RUN) 1 GM in IV 1 EA IV STA ×2 (08:15→11:28)
[2024-11-15 11:05] LABS: C REACTIVE PROTEIN QUANTITATIV 4.61 MG/DL (<1.0)
[2024-11-15 11:17] LABS: PROCALCITONIN 0.06 ng/ml
[2024-11-15] MEDS: FUROSEMIDE 40MG/4ML VIAL IV STA (11:28)
[2024-11-15 12:00] VITALS: BP 144/50; TEMP 97.2; O2SAT 92
[2024-11-15] MEDS: LevoFLOXacin 750 MG TABLET PO SCH (12:42)
[2024-11-15] MEDS: DOXYCYCLINE HYCLATE 100MG TABLET PO SCH (15:01)
[2024-11-15 19:33] VITALS: BP 163/80; TEMP 97.7; O2SAT 91
[2024-11-15] MEDS: MAG SULF 1GM/100ML (MAG RUN) 1 GM in IV 1 EA IV SCH (20:21)
[2024-11-16 00:16] VITALS: BP 156/72; TEMP 97.9; O2SAT 91
[2024-11-16 04:07] VITALS: BP 123/59; TEMP 97.7; O2SAT 92
[2024-11-16 04:10] LABS: BASO # 0.1 10^3/uL (0.0-0.2); BASO % 1.4 % (0.0-1.0); EOS # 0.3 10^3/uL (0.0-0.5); HEMATOCRIT 26.4 % (36.0-47.0); HEMOGLOBIN 8.2 g/dl (12.0-15.5); LYMPH # 1.2 10^3/uL (1.5-5.0); LYMPH % 17.5 % (24.0-44.0); MEAN CORPUSCULAR HEMOGLOBIN 29.2 pg (27.0-33.0); MEAN CORPUSCULAR HGB CONC 31.1 g/dl (32.0-36.5); MONO % 14.7 % (2.0-8.0); NEUTROPHILS % 60.3 % (36.0-66.0); PLATELET COUNT, AUTOMATED 246 10^3/uL (150-450); RED BLOOD COUNT 2.81 10^6/uL (4.00-5.40); WHITE BLOOD COUNT 6.6 10^3/uL (4.0-10.0)
[2024-11-16 04:34] LABS: BLOOD UREA NITROGEN 11 MG/DL (9-23); CALCIUM LEVEL 8.4 MG/DL (8.3-10.6); CARBON DIOXIDE LEVEL 37 MMOL/L (20-31); CHLORIDE LEVEL 93 MMOL/L (98-107); CREATININE FOR GFR 0.61 MG/DL (0.55-1.30); GLOMERULAR FILTRATION RATE > 60.0 (>32); GLUCOSE, FASTING 253 MG/DL (74-106); POTASSIUM SERUM 4.3 MMOL/L (3.5-5.1); SODIUM LEVEL 134 MMOL/L (136-145)
[2024-11-16 08:00] VITALS: BP 140/62; TEMP 97.6; O2SAT 92
[2024-11-16 12:00] VITALS: BP 143/54; TEMP 97.7; O2SAT 94
[2024-11-16] MEDS: predniSONE 20 MG TAB PO SCH (12:53)
[2024-11-16 20:11] VITALS: BP 119/57; TEMP 97.7; O2SAT 96
[2024-11-17 00:16] VITALS: BP 133/62; TEMP 97.3; O2SAT 94
[2024-11-17 04:34] VITALS: BP 134/64; TEMP 97.3; O2SAT 94
[2024-11-17] MEDS ORDERED: MAGN400T2 PO (06:33)
[2024-11-17] MEDS ORDERED: TORS20TA2 PO (06:33)
[2024-11-17] MEDS ORDERED: PANT40TA29 PO (06:33)
[2024-11-17] MEDS ORDERED: LOPR1TAB6 PO (06:33)
[2024-11-17] MEDS ORDERED: QUET1TAB17 PO (06:33)
[2024-11-17] MEDS ORDERED: DOXY100T PO (06:33)
[2024-11-17] MEDS ORDERED: LEVO75TAB PO (06:33)
[2024-11-17] MEDS ORDERED: ANOR1AER PO (07:20)
[2024-11-17] MEDS ORDERED: PRED10TA2 PO (07:20)
[2024-11-17 08:06] VITALS: BP 144/65
== END 2024-11-17 10:35 | DRG 682 ==
LOC: M ED 11:23 → M ED INP 16:38 → M PCU 17:42 → M ICU 11-01 06:57 → M PCU 11-04 03:01 → M MS5PR 11-09 02:56
PROVIDERS: ADMIT Internal Medicine Nephrology; ATTEND Internal Medicine
PROC: 02HV33Z Insertion of Infusion Device into Superior Vena Cava, Percutaneous Approach (ICD-10-PCS; 2024-10-29)
PROC: 5A1D70Z Performance of Urinary Filtration, Intermittent, Less than 6 Hours Per Day (ICD-10-PCS; 2024-10-31)
PROC: 30233N1 Transfusion of Nonautologous Red Blood Cells into Peripheral Vein, Percutaneous Approach (ICD-10-PCS; 2024-11-01)
PROC: B246ZZZ Ultrasonography of Right and Left Heart (ICD-10-PCS; 2024-11-01)
PROC: 05HM33Z Insertion of Infusion Device into Right Internal Jugular Vein, Percutaneous Approach (ICD-10-PCS; 2024-11-01)
PROC: 0DJ08ZZ Inspection of Upper Intestinal Tract, Via Natural or Artificial Opening Endoscopic (ICD-10-PCS; principal; 2024-11-02 07:30)
DX: N17.9 Acute kidney failure, unspecified (principal); K25.4 Chronic or unspecified gastric ulcer with hemorrhage; A41.9 Sepsis, unspecified organism; J96.21 Acute and chronic respiratory failure with hypoxia; I50.33 Acute on chronic diastolic (congestive) heart failure; G93.41 Metabolic encephalopathy; J15.9 Unspecified bacterial pneumonia; J12.9 Viral pneumonia, unspecified; R57.8 Other shock; E22.2 Syndrome of inappropriate secretion of antidiuretic hormone; I13.0 Hypertensive heart and chronic kidney disease with heart failure and stage 1 through stage 4 chronic kidney disease, or unspecified chronic kidney disease; J44.1 Chronic obstructive pulmonary disease with (acute) exacerbation; J44.0 Chronic obstructive pulmonary disease with (acute) lower respiratory infection; E87.20 Acidosis, unspecified; D62 Acute posthemorrhagic anemia; G72.81 Critical illness myopathy; E11.22 Type 2 diabetes mellitus with diabetic chronic kidney disease; N18.30 Chronic kidney disease, stage 3 unspecified; Z66 Do not resuscitate; I48.91 Unspecified atrial fibrillation; R26.89 Other abnormalities of gait and mobility; E83.42 Hypomagnesemia; E87.5 Hyperkalemia; K52.9 Noninfective gastroenteritis and colitis, unspecified; E78.5 Hyperlipidemia, unspecified; Z98.41 Cataract extraction status, right eye; F41.9 Anxiety disorder, unspecified; H40.10X0 Unspecified open-angle glaucoma, stage unspecified; Z98.42 Cataract extraction status, left eye; Z79.84 Long term (current) use of oral hypoglycemic drugs; Z79.899 Other long term (current) drug therapy; Z88.0 Allergy status to penicillin; Z88.1 Allergy status to other antibiotic agents; Z88.2 Allergy status to sulfonamides; Z88.5 Allergy status to narcotic agent